=== PATIENT | female | born 1950 | race Caucasian/White ===

== ENCOUNTER 2016-03-05 18:05 | Observation (INO) | payer BC ==
[2016-03-05] MEDS ORDERED: NS 1,000 ML IV ONE (18:55)
[2016-03-05] MEDS ORDERED: HYDROmorphONE/DILAUDID 1 MG/ML SYR IVP ONE ×2 (18:55→22:03)
[2016-03-05] MEDS ORDERED: ONDANSETRON 4 MG/2 ML VIAL IVP ONE ×2 (18:55→22:03)
--- NOTE | 2016-03-05 19:22 | EDPHY ---
H & P Stated Complaint: LLQ pain/nausea x 2 wks;saw PCP today,started on meds;wants another eval Source: Patient Exam Limitations: No limitations - Personal History Current Tetanus Diphtheria and Acellular Pertussis (TDAP): Yes Tetanus Vaccine Date: 2007 - Medical/Surgical History Hx Asthma: No Hx Chronic Respiratory Disease: Yes Hx Diabetes: Yes Hx Cardiac Disease: Yes Hx Renal Disease: No Hx Cirrhosis: No Hx Alcoholism: No Hx HIV/AIDS: No Hx Splenectomy or Spleen Trauma: No Other PMH: left mastectomy, breast cancer, hysterectomy, tonsillectomy, pacemaker, lap band, NIDDM, COPD. diverticulitis - Social History Smoking Status: Never smoked Time Seen by Provider: 03/05/16 18:10 HPI/ROS: CHIEF COMPLAINT: abdominal pain, vomiting HISTORY OF PRESENT ILLNESS: 66-year-old female presents emergency department complaining of left lower quadrant abdominal pain, nausea and vomiting. Patient has a history of diverticulitis, last episode 1 year ago. She reports a 2 week history of mild nausea and mild left lower quadrant tenderness at a 2 to 3/10. This morning after eating breakfast around noon she developed severe left lower quadrant pain with nausea and vomiting, she went to see Dr. Garcia today and was started on Augmentin and Zofran for a presumed diverticulitis, she was feeling better at the doctor's office, about 4 hours ago she became worse again with worsening pain, vomiting and nausea. She reports no diarrhea, no fevers. Patient has a history of a lap band 10 years ago. Pain is constant, no alleviating or worsening factors. Sharp and achy in nature. REVIEW OF SYSTEMS: A comprehensive 10 point review of systems is otherwise negative aside from elements mentioned in the history of present illness. (Leigh Ann Eisenberg) - Physical Exam Exam: Physical Exam Gen: Alert and Oriented, vomiting on my arrival to the room HEENT: PERRL, moist mucous membranes NECK: no meningismus CV: regular rate and regular rhythm PULM: CTAB, no wheezes ABDOMEN: Obese, soft, left lower quadrant tender to palpation, no guarding, no peritoneal signs. BS present BACK:mild left CVA tenderness NEURO: Neurologically grossly intact EXTREMITIES: normal appearing SKIN: no rash or break in skin on exposed skin PSYCH: answers questions appropriately. (Leigh Ann Eisenberg) Constitutional: Initial Vital Signs Temperature (C) 36.4 C 03/05/16 18:20 Heart Rate 71 03/05/16 18:20 Respiratory Rate 18 03/05/16 18:20 Blood Pressure 179/113 H 03/05/16 18:20 O2 Sat (%) 93 03/05/16 18:20 O2 Delivery Mode Room Air O2 (L/minute) 2 Allergies/Adverse Reactions: No Known Allergies Allergy (Verified 03/05/16 18:23) Home Medications: Medication Instructions Recorded Alpha Lipoic Acid 300 mg PO DAILY@06/14/12 Aspirin [Aspirin 81mg (OTC)] 81 mg PO DAILY@06/14/12 EXENATIDE [BYETTA] 10 mcg SQ BID@,06/14/12 Fenofibrate [Tricor 145 mg (RX)] 145 mg PO DAILY@06/14/12 Magnesium 500 mg PO DAILY@06/14/12 Rosuvastatin Calcium [Crestor 40mg 40 mg PO DAILY@06/14/12 (RX)] metFORMIN HCL [Glucophage 500 mg 1,000 mg PO BID@,08/10/12 (RX)] Benazepril/Hydrochlorothiazide 1 each PO DAILY@03/05/16 [Benazepril-Hctz 20-12.5 mg Tab] Chromium Picolinate 500 mcg PO DAILY@03/05/16 Cyanocobalamin [Vitamin B12 (*)] 1,000 mcg PO DAILY@03/05/16 Herbals/Supplements -Info Only 1 ea PO DAILY 03/05/16 Lansoprazole [Prevacid] 15 mg PO DAILY@03/05/16 Metoprolol Tartrate [Lopressor 25 25 mg PO BID@03/05/16 mg (*)] Naproxen Na-Diphenhydramin HCl 1 each PO HS PRN 03/05/16 [Aleve Pm Caplet] Naproxen Sodium [Aleve 220 MG (*)] 220 mg PO DAILY PRN 03/05/16 diphenhydrAMINE [Benadryl 25 MG 25 mg PO HS PRN 03/05/16 (*)] Medical Decision Making - Diagnostics Imaging: CT abdomen pelvis with IV contrast- Impression: 1. 9 x 5 mm left ureteral calculus associated left-sided obstructive uropathy. 2. Postoperative changes of gastric banding. 3. Cholelithiasis 4. Diverticulosis without diverticulitis. 5. See above report for additional findings. A preliminary report was called to Leigh Ann Eisenberg NP at 2120 hours in the Emergency Department. Dictated By: Eliel Baker MD (Leigh Ann Eisenberg) ED Course/Re-evaluation: IV established, CBC and chemistry panel obtained along with a urinalysis, CT abdomen pelvis with IV contrast ordered to evaluate for diverticulitis, kidney stone, other abdominal pathology. Patient is given 1 mg of Dilaudid IV and 4 mg of Zofran. CBC shows an elevated white blood cell count at 15,000 with a left shift, chemistry panel shows a glucose of 254, creatinine of 1.0, urinalysis shows 50- 182 red blood cells, no white blood cells. Patient is afebrile, nontoxic- appearing, urinating without difficulty. CT abdomen pelvis shows a left ureteral calculi in proximal ureter 9 mm x 5 mm with hydronephrosis. Patient continues with pain and vomiting. She will be admitted to the hospital medicine service, Dr. marquez has been consulted with Urology, he will see the patient in the morning. Patient is given 1 g of Rocephin IV and 30 mg of Toradol IV. (Leigh Ann Eisenberg) - Data Points Laboratory Results: Laboratory Results 03/05/16 21:07 03/05/16 19:30 03/05/16 03/05/16 21:07 19:30 WBC 15.01 H 10^3/uL REJ (3.80-9.50) RBC 4.45 10^6/uL TNP (4.18-5.33) Hgb 14.2 g/dL TNP (12.6-16.3) Hct 40.2 % TNP (38.0-47.0) MCV 90.3 fL TNP (81.5-99.8) MCH 31.9 pg TNP (27.9-34.1) MCHC 35.3 g/dL TNP (32.4-36.7) RDW 12.2 % TNP (11.5-15.2) Plt Count 372 10^3/uL TNP (150-400) MPV 9.5 fL TNP (8.7-11.7) Neut % (Auto) 81.5 H % TNP (39.3-74.2) Lymph % (Auto) 10.7 L % TNP (15.0-45.0) [place] % (Auto) 5.1 % TNP (4.5-13.0) Eos % (Auto) 0.3 L % TNP (0.6-7.6) Baso % (Auto) 0.7 % TNP (0.3-1.7) Nucleat RBC Rel Count 0.0 % TNP (0.0-0.2) Absolute Neuts (auto) 12.24 H 10^3/uL TNP (1.70-6.50) Absolute Lymphs (auto) 1.61 10^3/uL TNP (1.00-3.00) Absolute Monos (auto) 0.77 10^3/uL TNP (0.30-0.80) Absolute Eos (auto) 0.04 10^3/uL TNP (0.03-0.40) Absolute Basos (auto) 0.10 10^3/uL TNP (0.02-0.10) Absolute Nucleated RBC 0.00 10^3/uL TNP (0-0.01) Immature Gran % 1.7 H % TNP (0.0-1.1) Immature Gran # 0.25 H 10^3/uL TNP (0.00-0.10) Sodium 143 mEq/L (134-144) Potassium 4.2 mEq/L (3.5-5.2) Chloride 103 mEq/L (97-110) Carbon Dioxide 22 mEq/l (22-31) Anion Gap 18 mEq/L (8-16) BUN 18 mg/dL (7-23) Creatinine 1.0 mg/dL (0.6-1.0) Estimated GFR 55 Glucose 254 H mg/dL (70-100) Calcium 10.2 mg/dL (8.5-10.4) Total Bilirubin 0.8 mg/dL (0.1-1.4) AST 39 IU/L (14-46) ALT 26 IU/L (9-52) Alkaline Phosphatase 62 IU/L (38-126) Total Protein 7.1 g/dL (6.3-8.2) Albumin 4.3 g/dL (3.5-5.0) Urine Color YELLOW Urine Appearance MODERATELY TURBID Urine pH 5.0 (5.0-7.5) Ur Specific [place] 1.028 (1.002-1.030) Urine Protein 2+ H (NEGATIVE) Urine Ketones TRACE H (NEGATIVE) Urine Blood 3+ H (NEGATIVE) Urine Nitrate NEGATIVE (NEGATIVE) Urine Bilirubin NEGATIVE (NEGATIVE) Urine Urobilinogen NEGATIVE EU (0.2-1.0) Ur Leukocyte Esterase NEGATIVE (NEGATIVE) Urine RBC 50-182 H /hpf (0-3) Urine WBC NONE SEEN /hpf (0-3) Ur Epithelial Cells TRACE /lpf (NONE-1+) Calcium Oxalate Crystal PRESENT /hpf (NONE-1+) Urine Bacteria TRACE H /hpf (NONE SEEN) Urine Mucus TRACE /lpf (NONE-1+) Ur Culture Indicated? NOT INDICATED (NI) Urine Glucose 2+ H (NEGATIVE) Medications Given: Discontinued Medications Acetaminophen/Hydrocodone Bitart (Tony 5/325) 1 tab PO EDNOW ONE Stop: 03/05/16 21:27 Last Admin: 03/05/16 22:02 Dose: Not Given Acetaminophen/Hydrocodone Bitart (Tony 5/325mg Prepack#6) 1 btl TAKEHOME EDNOW ONE Stop: 03/05/16 21:28 Last Admin: 03/05/16 22:03 Dose: Not Given Hydromorphone HCl (Dilaudid) 1 mg IVP EDNOW ONE Stop: 03/05/16 18:56 Last Admin: 03/05/16 19:00 Dose: 1 mg Hydromorphone HCl (Dilaudid) 0.5 mg IVP EDNOW ONE Stop: 03/05/16 22:04 Last Admin: 03/05/16 22:35 Dose: 0.5 mg Sodium Chloride (Ns) 1,000 mls @ 0 mls/hr IV ONCE ONE PRN Reason: Wide Open Stop: 03/05/16 18:56 Last Admin: 03/05/16 19:00 Dose: 1,000 mls Ceftriaxone Sodium/Dextrose (Rocephin 1 Gm (Premix)) 50 mls @ 100 mls/hr IV EDNOW ONE PRN Reason: Protocol Stop: 03/05/16 22:10 Last Admin: 03/05/16 22:42 Dose: 50 mls Ketorolac Tromethamine (Toradol) 30 mg IVP EDNOW ONE Stop: 03/05/16 21:27 Last Admin: 03/05/16 22:30 Dose: 30 mg Ondansetron HCl (Zofran) 4 mg IVP EDNOW ONE Stop: 03/05/16 18:56 Last Admin: 03/05/16 19:00 Dose: 4 mg Ondansetron HCl (Zofran) 4 mg IVP EDNOW ONE Stop: 03/05/16 22:04 Last Admin: 03/05/16 22:30 Dose: 4 mg Departure - Departure Disposition: [facility] Inpatient Acute Clinical Impression: Left ureteral calculus Condition: Good
[2016-03-05 19:40] LABS: COLOR YELLOW; LEUKOCYTE ESTERASE,URINE NEGATIVE (NEGATIVE); NITRITE,URINE NEGATIVE (NEGATIVE)
[2016-03-05 19:54] LABS: ANION GAP 18 mEq/L (8-16); CARBON DIOXIDE 22 mEq/l (22-31); CHLORIDE 103 mEq/L (97-110); POTASSIUM 4.2 mEq/L (3.5-5.2); SODIUM 143 mEq/L (134-144)
[2016-03-05 19:55] LABS: ALANINE AMINOTRANSFERASE 26 IU/L (9-52); ALBUMIN 4.3 g/dL (3.5-5.0); ALKALINE PHOSPHATASE 62 IU/L (38-126); ASPARTATE AMINOTRANSFERASE 39 IU/L (14-46); BILIRUBIN,TOTAL 0.8 mg/dL (0.1-1.4); CALCIUM 10.2 mg/dL (8.5-10.4); GLOMERULAR FILTRATION RATE 55; GLUCOSE 254 mg/dL (70-100); TOTAL PROTEIN 7.1 g/dL (6.3-8.2)
[2016-03-05 19:59] LABS: BACTERIA TRACE /hpf (NONE SEEN); MUCUS TRACE /lpf (NONE-1+); RBC,URINE 50-182 /hpf (0-3)
[2016-03-05] MEDS ORDERED: IOPAMIDOL (ISOVUE-300) 50 ML VIAL IV ONE ×2 (20:03)
[2016-03-05 20:05] LABS: WBC,URINE NONE SEEN /hpf (0-3)
[2016-03-05 21:22] LABS: % IMMATURE GRANULYOCYTES 1.7 % (0.0-1.1); ABSOLUTE IMMATURE GRANULOCYTES 0.25 10^3/uL (0.00-0.10); ADD DIFF? NO; ADD MORPH? NO; ADD SCAN? NO; ATYPICAL LYMPHOCYTE FLAG 10 (0-99); FRAGMENT RBC FLAG 0 (0-99); HEMATOCRIT 40.2 % (38.0-47.0); HEMOGLOBIN 14.2 g/dL (12.6-16.3); LEFT SHIFT FLG 10 (0-99); LIPEMIA HEMOLYSIS FLAG 90 (0-99); MEAN CELL HEMOGLOBIN 31.9 pg (27.9-34.1); MEAN CELL HEMOGLOBIN CONCENTR. 35.3 g/dL (32.4-36.7); MEAN CELL VOLUME 90.3 fL (81.5-99.8); MEAN PLATELET VOLUME 9.5 fL (8.7-11.7); PLATELET CLUMPS FLAG 0 (0-99); PLATELET COUNT 372 10^3/uL (150-400); RED BLOOD CELL COUNT 4.45 10^6/uL (4.18-5.33); RED CELL DISTRIBUTION WIDTH 12.2 % (11.5-15.2)
[2016-03-05] MEDS ORDERED: KETOROLAC 30 MG/1 ML SDV IVP ONE (21:26)
[2016-03-05] MEDS ORDERED: TAMSULOSIN HCL 0.4 MG CAP PO ONE (21:27)
--- NOTE | 2016-03-05 21:29 | CT ---
CT Scan of the Abdomen and Pelvis With Contrast Indication: Left flank pain and hematuria in a 66-year-old female with a history of gastric band. Technique: Multidetector CT images of the abdomen and pelvis were obtained following the uneventful i ntravenous administration of 95 mL Isovue-300 contrast. No oral contrast was administered. Comparison is made to the previous examination March 09, 2015. Axial images are obtained at 5 mm intervals an d reformatted at 1.5 mm thickness. The examination is reviewed on the workstation at multiple window/ level settings. Sagittal and coronal reformations are performed. Dose reduction techniques were utilized for this examination. Abdomen: Lung bases: There is minimal basilar atelectasis. No pleural fluid. Cardiac pacer leads are identifie d. Liver: Normal. Postoperative changes of gastric banding are noted and unchanged. Biliary system: There is cholelithiasis. No intra or extrahepatic dilatation. Spleen: Negative for acute abnormality. No change in the appearance of the well-circumscribed low-att enuation area within the spleen consistent with a splenic cyst.. Pancreas: Normal. Adrenals: Normal. Kidneys: There is left hydronephrosis and there is edema in the left perinephric fat. In the proximal left ureter at the L3-L4 level there is a 9 x 5 mm ureteral calculus. The left ureter distal to this point is normal. The right kidney is negative for nephrolithiasis or hydronephrosis. A simple cyst o f the lower pole of the right kidney measures 5.3 cm in diameter and is unchanged. Abdominal Aorta: No aneurysm. Colonic diverticulosis is noted without diverticulitis. No bowel obstruction, ascites, or retroperito ben lymphadenopathy. CT Pelvis Findings: The bladder contour is normal. No ascites is seen. Degenerative changes are noted in the spine. Impression: 1. 9 x 5 mm left ureteral calculus associated left-sided obstructive uropathy. 2. Postoperative changes of gastric banding. 3. Cholelithiasis 4. Diverticulosis without diverticulitis. 5. See above report for additional findings. A preliminary report was called to Leigh Ann Eisenberg NP at 2120 hours in the Emergency Department.
[2016-03-05] MEDS: HYDROCOD/APAP 5/325 PREPACK#6 BTL TAKEHOME ONE ×2 (21:30→22:03)
[2016-03-05] MEDS: HYDROCODONE/APAP 5/325 TAB PO ONE ×2 (21:31→22:02)
[2016-03-05] MEDS ORDERED: PROMETHAZINE HCL 25 MG/ML VIAL IVP PRN (23:09)
[2016-03-05] MEDS ORDERED: oxyCODONE IR 5 MG TAB PO PRN (23:09)
[2016-03-05] MEDS ORDERED: LORazepam 0.5 MG TAB PO PRN (23:09)
[2016-03-05] MEDS ORDERED: ONDANSETRON DISINTEGRATING 4 MG TAB PO PRN (23:09)
[2016-03-05] MEDS ORDERED: ONDANSETRON 4 MG/2 ML VIAL IVP PRN (23:09)
[2016-03-05] MEDS ORDERED: ACETAMINOPHEN 325 MG TAB PO PRN (23:09)
[2016-03-05] MEDS ORDERED: ZOLPIDEM TARTRATE 5 MG TAB PO PRN (23:09)
[2016-03-05] MEDS ORDERED: HYDROmorphONE/DILAUDID 1 MG/ML SYR IVP PRN (23:09)
[2016-03-05] MEDS ORDERED: D50W 25 GM/50 ML SYR IVP PRN (23:09)
[2016-03-05] MEDS ORDERED: NAPROXEN SODIUM 220 MG TAB PO PRN (23:15)
[2016-03-05] MEDS ORDERED: diphenhydrAMINE 25 MG CAP PO PRN (23:15)
[2016-03-05] MEDS ORDERED: NAPROXEN NA DIPHENHYDRAMIN HCL PO PRN (23:15)
[2016-03-05] MEDS ORDERED: NS 1,000 ML IV SCH (23:15)
[2016-03-06] MEDS ORDERED: MAGNESIUM OXIDE 400 MG TAB PO SCH (01:00)
[2016-03-06] MEDS ORDERED: CHROMIUM PICOLINATE 500 MCG PO SCH (01:00)
[2016-03-06] MEDS ORDERED: ALPHA LIPOIC ACID 300 MG PO SCH (01:00)
[2016-03-06] MEDS ORDERED: METOPROLOL TARTRATE 25 MG TAB PO SCH (01:00)
[2016-03-06] MEDS ORDERED: BENAZEPRIL HCL 20 MG TAB PO SCH ×2 (01:00)
[2016-03-06] MEDS ORDERED: HYDROCHLOROTHIAZIDE 12.5 MG CAP PO SCH (01:00)
[2016-03-06] MEDS ORDERED: MAGNESIUM 500 MG PO SCH (01:00)
[2016-03-06] MEDS ORDERED: CYANO/VITAMIN B12 1000 MCG TAB PO SCH (01:00)
[2016-03-06] MEDS ORDERED: Exenatide [Byetta] 10 MCG SQ SCH (02:00)
[2016-03-06 06:07] LABS: % IMMATURE GRANULYOCYTES 1.8 % (0.0-1.1); ABSOLUTE IMMATURE GRANULOCYTES 0.22 10^3/uL (0.00-0.10); ADD DIFF? NO; ADD MORPH? NO; ADD SCAN? NO; ATYPICAL LYMPHOCYTE FLAG 10 (0-99); FRAGMENT RBC FLAG 0 (0-99); HEMATOCRIT 38.8 % (38.0-47.0); HEMOGLOBIN 12.9 g/dL (12.6-16.3); LEFT SHIFT FLG 10 (0-99); LIPEMIA HEMOLYSIS FLAG 80 (0-99); MEAN CELL HEMOGLOBIN 31.4 pg (27.9-34.1); MEAN CELL HEMOGLOBIN CONCENTR. 33.2 g/dL (32.4-36.7); MEAN CELL VOLUME 94.4 fL (81.5-99.8); MEAN PLATELET VOLUME 9.5 fL (8.7-11.7); PLATELET CLUMPS FLAG 0 (0-99); PLATELET COUNT 364 10^3/uL (150-400); RED BLOOD CELL COUNT 4.11 10^6/uL (4.18-5.33); RED CELL DISTRIBUTION WIDTH 12.3 % (11.5-15.2)
--- NOTE | 2016-03-06 06:31 | PDEACUHP ---
History and Physical - Chief Complaint abd pain/n/v - History of Present Illness 66 yo F with PMH that includes sarcoidosis, complete heart block s/p PPM and DM presenting with LLQ abd pain, n/v. She has been somewhat ill for the last 4 weeks per her report, initially with URI symptoms. This improved but then for the last 2 weeks she has had slight nausea and some left lower quadrant pain and left flank pain. She has not been eating very well secondary to the nausea. She denies any issues with change in her urination or blood in her urine. She has not had similar issues in the past. History Information - Allergies/Home Medication List Allergies/Adverse Reactions: No Known Allergies Allergy (Verified 03/05/16 18:23) Home Medications: Alpha Lipoic Acid 300 mg PO DAILY@06/14/12 [Last Taken 12/26/12] Aspirin [Aspirin 81mg (OTC)] 81 mg PO DAILY@06/14/12 [Last Taken 12/26/12] EXENATIDE [BYETTA] 10 mcg SQ BID@,06/14/12 [Last Taken 12/26/12] Fenofibrate [Tricor 145 mg (RX)] 145 mg PO DAILY@06/14/12 [Last Taken ] Magnesium 500 mg PO DAILY@06/14/12 [Last Taken 12/26/12] Rosuvastatin Calcium [Crestor 40mg (RX)] 40 mg PO DAILY@06/14/12 [Last Taken 12/26/12] metFORMIN HCL [Glucophage 500 mg (RX)] 1,000 mg PO BID@08/10/12 [Last Taken 12/26/12] Benazepril/Hydrochlorothiazide [Benazepril-Hctz 20-12.5 mg Tab] 1 each PO DAILY@ 03/05/16 [Last Taken Unknown] Chromium Picolinate 500 mcg PO DAILY@03/05/16 [Last Taken Unknown] Cyanocobalamin [Vitamin B12 (*)] 1,000 mcg PO DAILY@03/05/16 [Last Taken Unknown] Herbals/Supplements -Info Only 1 ea PO DAILY 03/05/16 [Last Taken Unknown] Lansoprazole [Prevacid] 15 mg PO DAILY@03/05/16 [Last Taken Unknown] Metoprolol Tartrate [Lopressor 25 mg (*)] 25 mg PO BID@,03/05/16 [Last Taken Unknown] Naproxen Na-Diphenhydramin HCl [Aleve Pm Caplet] 1 each PO HS PRN 03/05/16 [ Last Taken Unknown] Naproxen Sodium [Aleve 220 MG (*)] 220 mg PO DAILY PRN 03/05/16 [Last Taken Unknown] diphenhydrAMINE [Benadryl 25 MG (*)] 25 mg PO HS PRN 03/05/16 [Last Taken Unknown] I have personally reviewed and updated: family history, medical history, social history, surgical history - Past Medical History atrial fibrillation, coronary artery disease, diabetes type 2 Additional medical history: sarcoidosis. complete heart block. tito. morbid obesity. a flutter - Surgical History Reports: hysterectomy, mastectomy, pacemaker/AICD Additional surgical history: lap band. tonsillectomy - Family History Positive for: non-pertinent - Social History Smoking Status: Never smoked Alcohol Use: Rarely Drug Use: None Review of Systems ROS: 10pt was reviewed & negative except for what was stated in HPI & below Physical Exam Temp Pulse Resp BP Pulse Ox 36.8 C 71 19 122/62 H 93 03/06/16 04:55 03/06/16 04:55 03/06/16 04:55 03/06/16 04:55 03/06/16 04:55 O2 (L/minute) 2 Constitutional: no apparent distress, obese, uncomfortable Eyes: PERRL Ears, Nose, Mouth, Throat: moist mucous membranes Cardiovascular: regular rate and rhythym, no murmur, rub, or gallop Gastrointestinal: normoactive bowel sounds, tenderness Genitourinary: no bladder fullness Skin: warm, normal color Musculoskeletal: full muscle strength, no muscle tenderness Neurologic: AAOx3 Psychiatric: interacting appropriately, not anxious, not encephalopathic Lab Data & Imaging Review 03/06/16 05:28 03/06/16 05:28 WBC 12.51 10^3/uL (3.80-9.50) H 03/06/16 05:28 RBC 4.11 10^6/uL (4.18-5.33) L 03/06/16 05:28 Hgb 12.9 g/dL (12.6-16.3) 03/06/16 05:28 Hct 38.8 % (38.0-47.0) 03/06/16 05:28 MCV 94.4 fL (81.5-99.8) 03/06/16 05:28 MCH 31.4 pg (27.9-34.1) 03/06/16 05:28 MCHC 33.2 g/dL (32.4-36.7) 03/06/16 05:28 RDW 12.3 % (11.5-15.2) 03/06/16 05:28 Plt Count 364 10^3/uL (150-400) 03/06/16 05:28 MPV 9.5 fL (8.7-11.7) 03/06/16 05:28 Neut % (Auto) 73.2 % (39.3-74.2) 03/06/16 05:28 Lymph % (Auto) 15.8 % (15.0-45.0) 03/06/16 05:28 [place] % (Auto) 8.4 % (4.5-13.0) 03/06/16 05:28 Eos % (Auto) 0.1 % (0.6-7.6) L 03/06/16 05:28 Baso % (Auto) 0.7 % (0.3-1.7) 03/06/16 05:28 Nucleat RBC Rel Count 0.0 % (0.0-0.2) 03/06/16 05:28 Absolute Neuts (auto) 9.16 10^3/uL (1.70-6.50) H 03/06/16 05:28 Absolute Lymphs (auto) 1.98 10^3/uL (1.00-3.00) 03/06/16 05:28 Absolute Monos (auto) 1.05 10^3/uL (0.30-0.80) H 03/06/16 05:28 Absolute Eos (auto) 0.01 10^3/uL (0.03-0.40) L 03/06/16 05:28 Absolute Basos (auto) 0.09 10^3/uL (0.02-0.10) 03/06/16 05:28 Absolute Nucleated RBC 0.00 10^3/uL (0-0.01) 03/06/16 05:28 Immature Gran % 1.8 % (0.0-1.1) H 03/06/16 05:28 Immature Gran # 0.22 10^3/uL (0.00-0.10) H 03/06/16 05:28 Sodium 143 mEq/L (134-144) 03/05/16 19:30 Potassium 4.2 mEq/L (3.5-5.2) 03/05/16 19:30 Chloride 103 mEq/L (97-110) 03/05/16 19:30 Carbon Dioxide 22 mEq/l (22-31) 03/05/16 19:30 Anion Gap 18 mEq/L (8-16) 03/05/16 19:30 BUN 18 mg/dL (7-23) 03/05/16 19:30 Creatinine 1.0 mg/dL (0.6-1.0) 03/05/16 19:30 Estimated GFR 55 03/05/16 19:30 Glucose 254 mg/dL (70-100) H 03/05/16 19:30 POC Glucose 240 mg/dL (70-100) H 03/05/16 23:33 Calcium 10.2 mg/dL (8.5-10.4) 03/05/16 19:30 Total Bilirubin 0.8 mg/dL (0.1-1.4) 03/05/16 19:30 AST 39 IU/L (14-46) 03/05/16 19:30 ALT 26 IU/L (9-52) 03/05/16 19:30 Alkaline Phosphatase 62 IU/L (38-126) 03/05/16 19:30 Total Protein 7.1 g/dL (6.3-8.2) 03/05/16 19:30 Albumin 4.3 g/dL (3.5-5.0) 03/05/16 19:30 Urine Color YELLOW 03/05/16 19:30 Urine Appearance MODERATELY TURBID 03/05/16 19:30 Urine pH 5.0 (5.0-7.5) 03/05/16 19:30 Ur Specific [place] 1.028 (1.002-1.030) 03/05/16 19:30 Urine Protein 2+ (NEGATIVE) H 03/05/16 19:30 Urine Ketones TRACE (NEGATIVE) H 03/05/16 19:30 Urine Blood 3+ (NEGATIVE) H 03/05/16 19:30 Urine Nitrate NEGATIVE (NEGATIVE) 03/05/16 19:30 Urine Bilirubin NEGATIVE (NEGATIVE) 03/05/16 19:30 Urine Urobilinogen NEGATIVE EU (0.2-1.0) 03/05/16 19:30 Ur Leukocyte Esterase NEGATIVE (NEGATIVE) 03/05/16 19:30 Urine RBC 50-182 /hpf (0-3) H 03/05/16 19:30 Urine WBC NONE SEEN /hpf (0-3) 03/05/16 19:30 Ur Epithelial Cells TRACE /lpf (NONE-1+) 03/05/16 19:30 Calcium Oxalate Crystal PRESENT /hpf (NONE-1+) 03/05/16 19:30 Urine Bacteria TRACE /hpf (NONE SEEN) H 03/05/16 19:30 Urine Mucus TRACE /lpf (NONE-1+) 03/05/16 19:30 Ur Culture Indicated? NOT INDICATED (NI) 03/05/16 19:30 Urine Glucose 2+ (NEGATIVE) H 03/05/16 19:30 Visualized and Interpreted imaging results: Yes Interpretation: abd Ct with 9 x 5 mm Assessment & Plan Assessment: 66 yo F with hx of sarcoidosis and obesity presenting with uretero- nephrolithiasis # ureterolithiasis: with fairly large left sided stone in ureter, admitted for hydration and urology consult. Continue IVF, flomax. # obstructive uropathy: in setting of above, following creatinine, urology consulted # dm: holding metformin given need for procedure, will start ssi # hx of complete heart block: PPM in place # hx of morbid obesity: s/p lap band # tito: on cpap, will continue # chronic medical issues: sarcoidosis, CAD, a flutter # Dispo: observation status patient new to my care. old records reviewed summarized as above
[2016-03-06 06:35] LABS: ANION GAP 16 mEq/L (8-16); CALCIUM 9.5 mg/dL (8.5-10.4); CARBON DIOXIDE 22 mEq/l (22-31); CHLORIDE 109 mEq/L (97-110); CREATININE 1.2 mg/dL (0.6-1.0); GLOMERULAR FILTRATION RATE 45; GLUCOSE 169 mg/dL (70-100); POTASSIUM 4.6 mEq/L (3.5-5.2); SODIUM 147 mEq/L (134-144)
--- NOTE | 2016-03-06 08:02 | PDCONSULT ---
[facility] [place] Note: HPI: Ms Coles is a 66 yo female who presented last night with acute onset of left flank pain. Workup in the ER was significant for an obstructing 9x5 mm proximal left ureteral stone. Due to poor pain control, she was admitted for hydration and pain control. She has no prior hx of stones and has had no recent problems. She is currently asymptomatic. PMH: diabetes, s/p lap banding Meds, Allergies, labs, CT were reviewed personally. PE: Pt is alert and in NAD. Lungs clear Heart RRR Abdomen is soft and nontender Ext without edema Assess: Obstructing left upper ureteral stone without evidence of infection and currently with good pain control. Recommendations: I reviewed the findings from the CT with the patient. I discussed management options for large proximal stones, risks, stone-free rates. I feel that she would best served with ureteroscopy, laser lithotripsy, stent placement. This procedure could be performed as a scheduled procedure on Thursday; the option of placing an urgent stent and setting up definitive surgery was also discussed. The pt prefers to try to go home today and return for outpatient surgery tomorrow if possible. I will let her eat and if she can sustain reasonable pain control with oral medications, let her go home. I will schedule a specific time for her surgery for tomorrow and pass that information to the patient.
[2016-03-06] MEDS ORDERED: TAMSULOSIN HCL 0.4 MG CAP PO SCH (09:00)
[2016-03-06 09:14] VITALS: BP 130/72; PULSE 62; RESP 16; TEMP 98.1; O2SAT 95
[2016-03-06] MEDS: INSULIN LISPRO 100 UNIT/ML SC SCH ×2 (09:36→12:09)
--- NOTE | 2016-03-06 11:00 | PDDCSUM ---
Discharge Summary Discharge Summary: DISCHARGE SUMMARY FOLLOW-UP ITEMS: 1. Stone analysis following cystoscopy. 2. Recommend repeat creatinine BUN and lytes following cystoscopy DATE OF ADMISSION: 03/05/2016 DATE OF DISCHARGE: 03/06/2016 DISCHARGE DIAGNOSES: 1. Acute obstructive uropathy 2. Acute kidney injury 3. Acute hydronephrosis 4. Acute nephrolithiasis 5. DM2 w/ hyperglycemia CONSULTATIONS: Urology by Dr. Hernández PROCEDURES / IMAGING: CT of the abdomen demonstrating left-sided hydronephrosis with a 9 mm x 5 mm stone, cholelithiasis, diverticulosis CHIEF COMPLAINT: Acute abdominal pain SUBJECTIVE: Patient reports abdominal pain has improved, urinating well PHYSICAL EXAM ON DISCHARGE: Systolic blood pressure 120-140, heart rate in the 70s, afebrile overnight, satting well on room air, bowel sounds present, abdomen is soft nontender nondistended LABS ON DISCHARGE: Creatinine 1.2, white blood cell count 45688, blood sugar 170, potassium 4.6 HOSPITAL COURSE BY PROBLEM: 1. Acute obstructive uropathy. Evidence by hydronephrosis plus acute kidney injury plus obstructing kidney stone, causing acute abdominal pain. Patient's abdominal pain responded to pain medications and antiemetics. The patient feels comfortable at time of discharge and she will be discharged home with as needed oxycodone immediate release as well as as-needed Zofran. She will undergo urgent cystoscopy on 03/07/2016. 2. Acute kidney injury. Evidenced by serum creatinine level 1.2, secondary to middle urinary tract obstruction at the site of her stone. I recommended that the patient avoid nonsteroidal anti-inflammatory medications, temporarily discontinue her NINO inhibitor and diuretic, and temporarily discontinue her metformin. The patient understands medication recommendations, and she will be advise when to restart these medications after her cystoscopy. 3. Acute hydronephrosis. Left-sided, present on CT, secondary to stone obstruction. The stone will be removed and a stent will be placed by Dr. Hernández tomorrow via cystoscopy. 4. Acute nephrolithiasis. 9 mm x 5 mm stone causing obstruction outlined above , stone analysis will be performed once the stone has been removed tomorrow. She will receive further recommendations for stone prevention thereafter. 5. Diabetes mellitus type 2 with hyperglycemia. Acute increased secondary to stress hyperglycemia, patient is safe to continue her [place] periprocedurally but she should hold her metformin until after her procedure given her mild acute kidney injury. DISCHARGE MEDICATIONS: Please see official discharge medication reconciliation sheet in chart , recommend holding metformin, nonsteroidal anti-inflammatory medications, benazepril HCTZ, patient has been initiated on as needed oxycodone and Zofran DISCHARGE INSTRUCTIONS: Please follow up for cystoscopy tomorrow as planned
[2016-03-06] MEDS ORDERED: FENOFIBRATE 145 MG TAB PO SCH (13:00)
[2016-03-06] MEDS ORDERED: PANTOPRAZOLE SODIUM 40 MG TAB PO SCH (13:00)
[2016-03-06] MEDS ORDERED: ROSUVASTATIN CALCIUM 40 MG TAB PO SCH (13:00)
[2016-03-06] MEDS ORDERED: NON-FORMULARY NEW DRUG (Lansoprazole [Prevacid] 15 MG) PO SCH (13:00)
== END 2016-03-06 15:30 | disposition home or self-care (01) ==
LOC: F1N 23:29
PROVIDERS: ADMIT Student in an Organized Health Care Education/Training Program; ATTEND Internal Medicine
DX: N13.2 Hydronephrosis with renal and ureteral calculous obstruction (principal); N13.9 Obstructive and reflux uropathy, unspecified; N17.9 Acute kidney failure, unspecified; E11.65 Type 2 diabetes mellitus with hyperglycemia; Z87.19 Personal history of other diseases of the digestive system; J44.9 Chronic obstructive pulmonary disease, unspecified; K80.20 Calculus of gallbladder without cholecystitis without obstruction; I48.91 Unspecified atrial fibrillation; I25.10 Atherosclerotic heart disease of native coronary artery without angina pectoris; G47.33 Obstructive sleep apnea (adult) (pediatric); E66.01 Morbid (severe) obesity due to excess calories; Z68.37 Body mass index [BMI] 37.0-37.9, adult; Z87.09 Personal history of other diseases of the respiratory system; Z85.3 Personal history of malignant neoplasm of breast; Z95.0 Presence of cardiac pacemaker; Z98.84 Bariatric surgery status; Z90.12 Acquired absence of left breast and nipple
CPT/HCPCS: 74177; 96361; 96365; 96375; 96376; 99285; G0378; J0696; J1170; J1885; J2405; Q9967

== ENCOUNTER 2016-03-07 11:43 | Day surgery (SDC) | payer BC ==
[~2016-03-07 11:43] MED LIST: IOPAMIDOL (ISOVUE-370) 150 ML BTL IV ONE; IOPAMIDOL (ISOVUE-M 300) 15 ML VIAL IV ONE
[2016-03-07] MEDS ORDERED: CEFAZOLIN 2 GM/DEXTROSE/100 ML BAG IV ONE (12:49)
[2016-03-07] MEDS ORDERED: ceFAZolin 2 GM/DEXTROSE 100 ML IV ONE (13:00)
[2016-03-07] MEDS ORDERED: MIDAZOLAM 2 MG/2 ML VIAL ONE (13:16)
[2016-03-07] MEDS ORDERED: SUCCINYLCHOLINE CHLORIDE*ANESTHESIA ONLY*200 MG/10 ML SYR IVP ONE (13:19)
[2016-03-07] MEDS ORDERED: ROCURONIUM 50 MG/5 ML VIAL ONE (13:19)
[2016-03-07] MEDS ORDERED: LIDOCAINE 2% 5 ML SDV ONE (13:20)
[2016-03-07] MEDS ORDERED: DEXAMETHASONE 4 MG/ML VIAL ONE (13:20)
[2016-03-07] MEDS ORDERED: PROPOFOL 200 MG/20 ML VIAL ONE (13:21)
[2016-03-07] MEDS ORDERED: fentaNYL 100 MCG/2 ML INJ ONE ×2 (13:21→14:38)
[2016-03-07] MEDS ORDERED: SUGAMMADEX SODIUM 200 MG/2 ML VIAL IVP ONE ×2 (13:44)
--- NOTE | 2016-03-07 14:44 | GOP ---
[f rep st] OPERATIVE REPORT DATE OF OPERATION: 03/07/2016 SURGEON: Jarek Hernández MD PREOPERATIVE DIAGNOSIS: Left ureteral calculus. POSTOPERATIVE DIAGNOSIS: Left ureteral calculus. PROCEDURE PERFORMED: Left ureteroscopy with holmium laser lithotripsy, basket extraction of stones, placement of indwelling ureteral stent. FINDINGS: SPECIMENS: Stone fragments for analysis. ESTIMATED BLOOD LOSS: None. INDICATIONS: The patient is a 66-year-old female who was admitted yesterday after suffering left fla nk pain. Was found to have a 9 x 7 mm proximal left ureteral stone. She was subsequently discharged , but after discussing options and due to the stone size, elected to come in today for stone extracti on. DESCRIPTION OF PROCEDURE: After informed consent and with general endotracheal anesthesia, the patie nt was placed in the lithotomy position with her genitalia sterilely prepped and draped. Cystoscopy was carried out, and a Sensor guidewire passed into the left renal pelvis under fluoroscopic control. A flexible ureteroscopy access sheath was then positioned in the proximal ureter. The flexible ure teroscope was inserted. The stone was identified, and was pushed back into the kidney. A 200 micron holmium laser fiber was then used at 6.4 james of energy. The stone fragments were then removed usi ng a Zero Tip nitinol basket. The remaining collecting system was examined, and the upper tracts opa cified. The scope and sheath were removed under vision. A 6-[place] multi-length ureteral stent was positioned, and a withdrawal string was left in place. The patient was awakened and transferred to the recovery room in stable condition. There were no int raoperative complications. /[id number]/MODL
[2016-03-07] MEDS ORDERED: ONDANSETRON 4 MG/2 ML VIAL ONE (14:58)
--- NOTE | 2016-03-07 19:28 | DX ---
Fluoroscopy Greater Than One Hour Clinical indication: Stent placement. Fluoroscopy time 0.1 seconds. Dose 0.5 mGy. Findings: Single spot fluoroscopic image was obtained. This shows placement of a left ureteral stent in good position. A gastric band is noted. Impression: Fluoroscopy provided for left ureteral stent placement.
[2016-03-11 18:24] LABS: NIDUS NOT OBSERVED; SOURCE OF STONE LEFT URETER
== END 2016-03-07 16:30 | disposition home or self-care (01) ==
LOC: FSGY 11:43
PROVIDERS: ATTEND Urology
PROC: 0T778DZ Dilation of Left Ureter with Intraluminal Device, Via Natural or Artificial Opening Endoscopic (ICD-10-PCS; principal; 2016-03-07 13:00)
PROC: 0TF48ZZ Fragmentation in Left Kidney Pelvis, Via Natural or Artificial Opening Endoscopic (ICD-10-PCS; 2016-03-07 13:00)
PROC: 0TC48ZZ Extirpation of Matter from Left Kidney Pelvis, Via Natural or Artificial Opening Endoscopic (ICD-10-PCS; 2016-03-07 13:00)
DX: N20.1 Calculus of ureter (principal); G47.33 Obstructive sleep apnea (adult) (pediatric); J45.909 Unspecified asthma, uncomplicated; E11.9 Type 2 diabetes mellitus without complications; D86.9 Sarcoidosis, unspecified; Z95.0 Presence of cardiac pacemaker; Z98.84 Bariatric surgery status
CPT/HCPCS: 52352; 52356; 76001; C1894; 82365-90; C2625; J0330; J0690; J1100; J2250; J2405; J2704; J3010; Q9967

== ENCOUNTER 2016-03-17 18:55 | Inpatient (IN) | payer OTHER, BC ==
--- NOTE | 2016-03-17 19:28 | EDPHY ---
H & P Time Seen by Provider: 03/17/16 19:28 HPI/ROS: CHIEF COMPLAINT: I am disoriented HISTORY OF PRESENT ILLNESS: This 66-year-old woman is a diabetic who presents with her friend and brought her in because the patient was not acting normally today. She was supposed to meet with her friend at 5:30 p.m. when she did not show up her friend went to her house and then brought her here because she is not acting right. The patient says she can't talk normally. She has trouble thinking of which she wants to say. She does not know when it started and her friend only knows that they went for a walk yesterday and she left her at 1:30 p.m. and she was normal. That is the last known normal time. Patient's symptoms are not associated with headache or weakness or numbness in extremities or vertigo. Symptoms are moderate in nature. Not better worse with anything. REVIEW OF SYSTEMS: Eye: no change in vision ENT: no sore throat Cardiac: no chest pain or syncope Pulmonary: no cough or SOB Abdomen: no vomiting, diarrhea, abdominal pain Musculoskeletal: no back pain Skin: no rash Neuro: no headache Constitutional: no fever : no urinary symptoms; recent admission for ureteral stone and extraction with stent placement. A comprehensive 10 point review of systems is otherwise negative aside from elements mentioned in the history of present illness. PAST MEDICAL HISTORY: Includes breast cancer, hysterectomy and tonsillectomy, pacemaker, diabetes, COPD. Recent admission for kidney stone ureteral stent. Discharge summary dated 03/06/2016 personally reviewed by myself. Primary care doctor is Larisa Doherty. Social history: Occasional alcohol but none today, nonsmoker. No drugs. General Appearance: Alert and hesitant speech, cooperative. Eyes: No scleral icterus. ENT, Mouth: Normal mucous membranes. Respiratory: Normal respiratory effort, breath sounds equal, lungs are clear to auscultation. Cardiovascular: Regular rate and rhythm. Gastrointestinal: Abdomen is soft and non tender. Neurological: Alert and oriented x3. Patient has slow speech consistent with some word-finding difficulties. Extraocular motion is intact. Face symmetric, normal movement and sensation in all extremities. Skin: Warm and dry, no rashes. Musculoskeletal: No peripheral edema and no joint swelling. Neck supple with normal range of motion. No meningeal signs. Psychiatric: Not agitated. Emergency Department course/MDM: Concern exists for stroke given word-finding difficulties but does not qualify for stroke alert as last known normal was 1:30 p.m. yesterday on March 16. Plan for CT, CT angiography, i-STAT glucose. 2154: Results discussed, friends and patient's air speech is now better, admit for TIA. 2224: [employer] contacted by the desk EMT for pacemaker interrogation. Patient's hematuria and elevated white blood cell count are noted, this is probably related to her recent ureteral stone extraction. Chest x-ray is negative. I do not think this represents an acute bacterial illness, or acute infectious encephalitis. Smoking Status: Never smoked Constitutional: Initial Vital Signs Temperature (C) 37.3 C 03/17/16 19:03 Heart Rate 125 H 03/17/16 19:03 Respiratory Rate 20 03/17/16 19:03 Blood Pressure 159/94 H 03/17/16 19:03 O2 Sat (%) 91 L 03/17/16 19:03 O2 Delivery Mode Room Air Allergies/Adverse Reactions: No Known Allergies Allergy (Verified 03/05/16 18:23) Home Medications: Medication Instructions Recorded Alpha Lipoic Acid 300 mg PO DAILY@06/14/12 EXENATIDE [BYETTA] 10 mcg SQ BID@06/14/12 Fenofibrate [Tricor 145 mg (*)] 145 mg PO DAILY@06/14/12 Magnesium 500 mg PO DAILY@06/14/12 Rosuvastatin Calcium [Crestor 40mg 40 mg PO DAILY@06/14/12 (*)] Chromium Picolinate 500 mcg PO DAILY@03/05/16 Cyanocobalamin [Vitamin B12 (*)] 1,000 mcg PO DAILY@03/05/16 Herbals/Supplements -Info Only 1 ea PO DAILY 03/05/16 Lansoprazole [Prevacid] 15 mg PO DAILY@03/05/16 Metoprolol Tartrate [Lopressor 25 25 mg PO BID@03/05/16 mg (*)] diphenhydrAMINE [Benadryl 25 MG 25 mg PO HS PRN 03/05/16 (*)] Acetaminophen [Tylenol 325mg (*)] 650 mg PO Q4HRS PRN #0 tab 03/06/16 Ondansetron Odt [Zofran Odt 4 mg 4 mg PO Q4HRS PRN #0 tab 03/06/16 (*)] Sennosides/Docusate Sodium 1 tab PO BID PRN #40 tab 03/06/16 [Senokot-S] Tamsulosin HCl [Flomax 0.4 MG (*)] 0.4 mg PO DAILY #14 cap 03/06/16 oxyCODONE IR [Oxycodone Ir (*)] 2.5 - 10 mg PO Q3HRS PRN #20 tab 03/06/16 Albuterol Hfa Anes Only [Proair 2 puffs IH QID PRN 03/17/16 Hfa Icu (*)] Benazepril/Hydrochlorothiazide 1 each PO DAILY 03/17/16 [Benazepril-Hctz 20-12.5 mg Tab] metFORMIN HCL [Glucophage 500 mg 1,000 mg PO BIDMEAL 03/17/16 (*)] Medical Decision Making - Diagnostics EKG Interpretation: 12-lead EKG interpreted by me; official reading is in trace master. My interpretation is ventricular paced rhythm at 122. Imaging: CT head and CT angiography reported by Dr. Willie Yung negative for acute intracranial abnormality or large vessel obstruction. Differential Diagnosis: Differential considered including but not limited to intracranial mass, intracranial bleed, ischemic stroke, seizure. Consult/Admit Bed Type: [place] [id number] - Data Points Laboratory Results: Laboratory Results 03/17/16 19:20 03/17/16 19:20 03/17/16 03/17/16 03/17/16 20:15 19:35 19:20 WBC 19.57 H 10^3/uL (3.80-9.50) RBC 4.34 10^6/uL (4.18-5.33) Hgb 13.6 g/dL (12.6-16.3) POC Hgb 13.6 gm/dL (12.3-15.9) Hct 39.2 % (38.0-47.0) POC Hct 40 % (35.5-47.5) MCV 90.3 fL (81.5-99.8) MCH 31.3 pg (27.9-34.1) MCHC 34.7 g/dL (32.4-36.7) RDW 12.5 % (11.5-15.2) Plt Count 352 10^3/uL (150-400) MPV 9.7 fL (8.7-11.7) Neut % (Auto) 74.7 H % (39.3-74.2) Lymph % (Auto) 12.1 L % (15.0-45.0) [place] % (Auto) 11.5 % (4.5-13.0) Eos % (Auto) 0.3 L % (0.6-7.6) Baso % (Auto) 0.6 % (0.3-1.7) Nucleat RBC Rel Count 0.0 % (0.0-0.2) Absolute Neuts (auto) 14.63 H 10^3/uL (1.70-6.50) Absolute Lymphs (auto) 2.36 10^3/uL (1.00-3.00) Absolute Monos (auto) 2.26 H 10^3/uL (0.30-0.80) Absolute Eos (auto) 0.06 10^3/uL (0.03-0.40) Absolute Basos (auto) 0.11 H 10^3/uL (0.02-0.10) Absolute Nucleated RBC 0.00 10^3/uL (0-0.01) Immature Gran % 0.8 % (0.0-1.1) Immature Gran # 0.15 H 10^3/uL (0.00-0.10) PT 13.7 SEC (12.0-15.0) INR 1.06 (0.83-1.16) POC Sodium 139 mEq/L (134-144) Sodium 135 mEq/L (134-144) POC Potassium 3.1 L mEq/L (3.3-5.0) Potassium 3.9 mEq/L (3.5-5.2) POC Chloride 100 mEq/L (96-108) Chloride 100 mEq/L (97-110) Carbon Dioxide 20 L mEq/l (22-31) Anion Gap 15 mEq/L (8-16) POC BUN 11 mg/dL (7-23) BUN 11 mg/dL (7-23) Creatinine 0.8 mg/dL (0.6-1.0) POC Creatinine 0.8 mg/dL (0.6-1.2) Estimated GFR > 60 Glucose 192 H mg/dL (70-100) POC Glucose 198 H mg/dL (70-100) Calcium 9.6 mg/dL (8.5-10.4) Troponin I 0.012 ng/mL (0-0.034) Urine Color YELLOW Urine Appearance HAZY Urine pH 6.0 (5.0-7.5) Ur Specific [place] 1.016 (1.002-1.030) Urine Protein 1+ H (NEGATIVE) Urine Ketones NEGATIVE (NEGATIVE) Urine Blood 2+ H (NEGATIVE) Urine Nitrate NEGATIVE (NEGATIVE) Urine Bilirubin NEGATIVE (NEGATIVE) Urine Urobilinogen NEGATIVE EU (0.2-1.0) Ur Leukocyte Esterase 2+ H (NEGATIVE) Urine RBC 50-182 H /hpf (0-3) Urine WBC 10-15 H /hpf (0-3) Ur Epithelial Cells TRACE /lpf (NONE-1+) Urine Mucus TRACE /lpf (NONE-1+) Ur Culture Indicated? INDICATED H (NI) Urine Glucose NEGATIVE (NEGATIVE) Point of Care Test Results: 03/17/16 19:35 POC Sodium 139 POC Potassium 3.1 L POC Chloride 100 POC BUN 11 POC Creatinine 0.8 POC Glucose 198 H Departure - Departure Disposition: [facility] Inpatient Acute Clinical Impression: Transient cerebral ischemia Qualifiers: Qualifier Code: (G45.9) Transient cerebral ischemic attack, unspecified Condition: Good
[2016-03-17] MEDS ORDERED: IOPAMIDOL (ISOVUE 370) 100 ML BTL IV ONE (19:46)
[2016-03-17 19:49] LABS: % IMMATURE GRANULYOCYTES 0.8 % (0.0-1.1); ABSOLUTE IMMATURE GRANULOCYTES 0.15 10^3/uL (0.00-0.10); ADD DIFF? NO; ADD MORPH? NO; ADD SCAN? NO; ATYPICAL LYMPHOCYTE FLAG 10 (0-99); FRAGMENT RBC FLAG 0 (0-99); HEMATOCRIT 39.2 % (38.0-47.0); HEMOGLOBIN 13.6 g/dL (12.6-16.3); LEFT SHIFT FLG 10 (0-99); LIPEMIA HEMOLYSIS FLAG 90 (0-99); MEAN CELL HEMOGLOBIN 31.3 pg (27.9-34.1); MEAN CELL HEMOGLOBIN CONCENTR. 34.7 g/dL (32.4-36.7); MEAN CELL VOLUME 90.3 fL (81.5-99.8); MEAN PLATELET VOLUME 9.7 fL (8.7-11.7); PLATELET CLUMPS FLAG 10 (0-99); PLATELET COUNT 352 10^3/uL (150-400); RED BLOOD CELL COUNT 4.34 10^6/uL (4.18-5.33); RED CELL DISTRIBUTION WIDTH 12.5 % (11.5-15.2)
--- NOTE | 2016-03-17 19:50 | CPEKG ---
Heart Rate: 122 RR Interval: 492 P-R Interval: 48 QRSD Interval: 174 QT Interval: 436 QTC Interval: 622 P [place]: 0 QRS [place]: 266 T Wave [place]: 111 EKG Severity - ABNORMAL ECG - EKG Impression: VENTRICULAR-PACED RHYTHM Electronically Signed By: Aung Armas 17-Mar-2016 20:20:58
[2016-03-17 19:51] LABS: ANION GAP 15 mEq/L (8-16); CALCIUM 9.6 mg/dL (8.5-10.4); CARBON DIOXIDE 20 mEq/l (22-31); CHLORIDE 100 mEq/L (97-110); CREATININE 0.8 mg/dL (0.6-1.0); GLOMERULAR FILTRATION RATE > 60; GLUCOSE 192 mg/dL (70-100); POTASSIUM 3.9 mEq/L (3.5-5.2); SODIUM 135 mEq/L (134-144)
[2016-03-17 19:55] LABS: INR 1.06 (0.83-1.16); PROTIME(PATIENT) 13.7 SEC (12.0-15.0)
[2016-03-17 20:03] LABS: TROPONIN I 0.012 ng/mL (0-0.034)
[2016-03-17 20:35] LABS: COLOR YELLOW; LEUKOCYTE ESTERASE,URINE 2+ (NEGATIVE); NITRITE,URINE NEGATIVE (NEGATIVE)
[2016-03-17 20:47] LABS: MUCUS TRACE /lpf (NONE-1+); RBC,URINE 50-182 /hpf (0-3)
--- NOTE | 2016-03-17 21:32 | CT ---
CT Head, Without Contrast HISTORY: Word finding difficulty. Technique: Standard noncontrast head CT protocol utilizing axial images acquired through the calvari um. Images were reconstructed down to 1.25-mm slice thickness, as well. Radiation dose technique wa s utilized. FINDINGS: No evidence for an intracranial mass, hemorrhage, or acute infarct. The ventricles, sulci , and cisterns are within normal limits for the patient's age. No evidence for an extraaxial fluid c ollection. No evidence for a skull fracture. Probable mucus retention cyst is seen in the frontal s inuses. FINDINGS: No evidence for acute intracranial abnormality. Mild chronic sinus-related change. Results discussed with Dr. Aung Armas on March 17, 2016 at 2125 hours.
--- NOTE | 2016-03-17 21:55 | CT ---
CT Angiogram Neck, With IV Contrast HISTORY: Word finding difficulty. TECHNIQUE: Thin cut axial imaging was obtained of the neck postintravenous contrast. IV contrast do se 90 mL Isovue-370 contrast. Multiplanar and 3D evaluation was performed at the workstation. Radia tion dose reduction technique was utilized. FINDINGS: There is a bovine arch configuration. No significant stenosis is seen in either common ca rotid artery. There is mild atherosclerotic plaque formation, with no significant stenosis, at both carotid bulbs. Both internal carotid arteries are tortuous, without significant stenosis or dissecti on. Both vertebral arteries are patent, without evidence for stenosis or dissection. Multilevel deg enerative change is seen in the cervical spine. IMPRESSION: Mild atherosclerotic change at both carotid bulbs causing no significant stenosis. Measurement of stenosis is calculated using criteria from the [place] Symptomatic Carotid Enda rterectomy Trial (NASCET). CT Head Angiogram, With IV Contrast HISTORY: Word finding difficulty. TECHNIQUE: Thin cut axial imaging was obtained of the head postintravenous contrast, with 90 mL Isov ue-370 contrast. Multiplanar and 3D evaluation was performed at the workstation. Radiation dose red uction technique was utilized. FINDINGS: No evidence for significant stenosis or a filling defect to indicate thrombus. There is a hypoplastic A1 segment of the right anterior cerebral artery. There is a hypoplastic or absent P1 s egment of the right posterior cerebral artery. The right posterior cerebral artery is seen communica ting to a right posterior communicating artery. No evidence for an aneurysm or arteriovenous malform ation. No evidence for venous sinus thrombosis. IMPRESSION: No significant stenosis is visualized or evidence for acute thrombus. Variant anatomy o f the pala of [place], as above. Results called to Dr. Aung Armas on March 17, 2016 at 2125 hours.
--- NOTE | 2016-03-17 22:00 | DX ---
Chest, PA and Lateral March 17, 2016 HISTORY: Altered mental status. Disoriented. Elevated white count. COMPARISON: December 2012. FINDINGS: Cardiac pacer and pacing leads are stable. The heart size is within normal limits. The p ulmonary vascularity appears normal. Mild peribronchial wall thickening is seen. Emphysematous conf iguration to the chest. No evidence for acute airspace consolidation or pleural effusion. Degenerat bella change is seen in the thoracic spine. Surgical clips are seen at the left axilla. IMPRESSION: Question mild bronchitis. No other findings for acute cardiopulmonary abnormality.
[2016-03-17] MEDS ORDERED: ONDANSETRON DISINTEGRATING 4 MG TAB PO PRN (23:03)
[2016-03-17] MEDS ORDERED: IBUPROFEN 200 MG TAB PO PRN (23:03)
[2016-03-17] MEDS ORDERED: ONDANSETRON 4 MG/2 ML VIAL IVP PRN (23:03)
[2016-03-17] MEDS ORDERED: SENNOSIDES/DOCUSATE SODIUM TAB PO PRN (23:06)
[2016-03-17] MEDS ORDERED: ALBUTEROL 60 PUFFS/8 GM MDI IH PRN (23:06)
[2016-03-17] MEDS ORDERED: cefTRIAXone 1 GM in D5W 50 ML IV SCH (23:30)
[2016-03-18] MEDS ORDERED: MAGNESIUM PO SCH (01:00)
--- NOTE | 2016-03-18 01:07 | PDGENHP ---
History and Physical - Chief Complaint Acute aphasia - History of Present Illness PCP: Dr. Garcia Primary urologist: Dr. Hernández Primary electrician underground: Dr. Rooney HPI: 66-year-old female presenting with acute aphasia characterized as difficulty speaking and getting words out with associated disorientation and poor short-term memory. Onset of symptoms was after 7:00 p.m. on 03/17/2016, as this was the last time the patient was seen at her baseline. Patient spoke with a friend on the phone at 12:00 p.m. on 03/18/2016 and that friend reported that the patient was having speech difficulties. The duration apparently persisted, and the patient was seen by another friend on the evening of 2016 and this friend brought the patient to the hospital for the aforementioned symptoms. Patient has very poor recollection of the above mentioned of events. She reports that her symptoms were somewhat alleviated by being brought to the hospital and being reoriented by her friend. She does note that the symptoms are somewhat persistent at this time. In her recent past, the patient had a kidney stone removed via lithotripsy and then ureteral stent was placed, she received oral antibiotics, the stent was removed approximately 4 days ago. Antibiotics were also discontinued at that time. In the interim, she has experienced some very mild dysuria as well as nausea. History Information - Allergies/Home Medication List Allergies/Adverse Reactions: No Known Allergies Allergy (Verified 03/05/16 18:23) Home Medications: Alpha Lipoic Acid 300 mg PO DAILY@06/14/12 [Last Taken 03/17/16] EXENATIDE [BYETTA] 10 mcg SQ BID@06/14/12 [Last Taken 03/17/16] Fenofibrate [Tricor 145 mg (*)] 145 mg PO DAILY@06/14/12 [Last Taken 03/17/16 ] Magnesium 500 mg PO DAILY@06/14/12 [Last Taken 03/17/16] Rosuvastatin Calcium [Crestor 40mg (*)] 40 mg PO DAILY@06/14/12 [Last Taken 03/17/16] Chromium Picolinate 500 mcg PO DAILY@03/05/16 [Last Taken 03/17/16] Cyanocobalamin [Vitamin B12 (*)] 1,000 mcg PO DAILY@03/05/16 [Last Taken ] Herbals/Supplements -Info Only 1 ea PO DAILY 03/05/16 [Last Taken 03/17/16] Lansoprazole [Prevacid] 15 mg PO DAILY@03/05/16 [Last Taken 03/17/16] Metoprolol Tartrate [Lopressor 25 mg (*)] 25 mg PO BID@03/05/16 [Last Taken 03/17/16] diphenhydrAMINE [Benadryl 25 MG (*)] 25 mg PO HS PRN 03/05/16 [Last Taken ] Albuterol Hfa Anes Only [Proair Hfa Icu (*)] 2 puffs IH QID PRN 03/17/16 [Last Taken 03/16/16] Benazepril/Hydrochlorothiazide [Benazepril-Hctz 20-12.5 mg Tab] 1 each PO DAILY 03/17/16 [Last Taken 03/17/16] metFORMIN HCL [Glucophage 500 mg (*)] 1,000 mg PO BIDMEAL 03/17/16 [Last Taken 03/17/16] I have personally reviewed and updated: family history, medical history, social history, surgical history - Past Medical History atrial fibrillation, coronary artery disease, diabetes type 2 Additional medical history: sarcoidosis. complete heart block. tito. morbid obesity. a flutter. Nephrolithiasis, calcium oxalate stone - Surgical History Reports: hysterectomy, mastectomy, pacemaker/AICD Additional surgical history: lap band. tonsillectomy. Ureteroscopy approximately 1 week ago with stent removal - Family History Additional family history: No family history of CVA - Social History Smoking Status: Never smoked Alcohol Use: None Drug Use: None Additional social history: Normally independent in ADLs Review of Systems ROS: 10pt was reviewed & negative except for what was stated in HPI & below Neurological: Reports: other (Aphasia, poor short-term memory) Physical Exam Temp Pulse Resp BP Pulse Ox 36.6 C 87 19 162/80 H 90 L 03/18/16 00:21 03/18/16 00:21 03/18/16 00:21 03/18/16 00:21 03/18/16 00:21 Constitutional: no apparent distress, appears nourished, not in pain, obese Eyes: PERRL, anicteric sclera, EOMI Ears, Nose, Mouth, Throat: moist mucous membranes, hearing normal, ears appear normal, no oral mucosal ulcers Cardiovascular: tachycardia, No systolic murmur, No irregularly irregular, No edema Respiratory: no respiratory distress, no rales or rhonchi, clear to auscultation Gastrointestinal: normoactive bowel sounds, soft, non-tender abdomen, no palpable masses Genitourinary: no bladder fullness, no bladder tenderness, other (No CVA tenderness) Skin: warm, normal color, no rashes or abrasions, no fluctuance, no induration, No mottled Neurologic: AAOx3, sensation intact bilaterally, CN II-XII Intact, other ( Ongoing expressive aphasia with word-finding difficulty), No weakness (Motor strength 5/5 bilaterally), No facial droop Psychiatric: interacting appropriately, not anxious, not encephalopathic, thought process linear Lab Data & Imaging Review 03/17/16 19:20 03/17/16 19:20 WBC 19.57 10^3/uL (3.80-9.50) H 03/17/16 19:20 RBC 4.34 10^6/uL (4.18-5.33) 03/17/16 19:20 Hgb 13.6 g/dL (12.6-16.3) 03/17/16 19:20 POC Hgb 13.6 gm/dL (12.3-15.9) 03/17/16 19:35 Hct 39.2 % (38.0-47.0) 03/17/16 19:20 POC Hct 40 % (35.5-47.5) 03/17/16 19:35 MCV 90.3 fL (81.5-99.8) 03/17/16 19:20 MCH 31.3 pg (27.9-34.1) 03/17/16 19:20 MCHC 34.7 g/dL (32.4-36.7) 03/17/16 19:20 RDW 12.5 % (11.5-15.2) 03/17/16 19:20 Plt Count 352 10^3/uL (150-400) 03/17/16 19:20 MPV 9.7 fL (8.7-11.7) 03/17/16 19:20 Neut % (Auto) 74.7 % (39.3-74.2) H 03/17/16 19:20 Lymph % (Auto) 12.1 % (15.0-45.0) L 03/17/16 19:20 [place] % (Auto) 11.5 % (4.5-13.0) 03/17/16 19:20 Eos % (Auto) 0.3 % (0.6-7.6) L 03/17/16 19:20 Baso % (Auto) 0.6 % (0.3-1.7) 03/17/16 19:20 Nucleat RBC Rel Count 0.0 % (0.0-0.2) 03/17/16 19:20 Absolute Neuts (auto) 14.63 10^3/uL (1.70-6.50) H 03/17/16 19:20 Absolute Lymphs (auto) 2.36 10^3/uL (1.00-3.00) 03/17/16 19:20 Absolute Monos (auto) 2.26 10^3/uL (0.30-0.80) H 03/17/16 19:20 Absolute Eos (auto) 0.06 10^3/uL (0.03-0.40) 03/17/16 19:20 Absolute Basos (auto) 0.11 10^3/uL (0.02-0.10) H 03/17/16 19:20 Absolute Nucleated RBC 0.00 10^3/uL (0-0.01) 03/17/16 19:20 Immature Gran % 0.8 % (0.0-1.1) 03/17/16 19:20 Immature Gran # 0.15 10^3/uL (0.00-0.10) H 03/17/16 19:20 PT 13.7 SEC (12.0-15.0) 03/17/16 19:20 INR 1.06 (0.83-1.16) 03/17/16 19:20 POC Sodium 139 mEq/L (134-144) 03/17/16 19:35 Sodium 135 mEq/L (134-144) 03/17/16 19:20 POC Potassium 3.1 mEq/L (3.3-5.0) L 03/17/16 19:35 Potassium 3.9 mEq/L (3.5-5.2) 03/17/16 19:20 POC Chloride 100 mEq/L (96-108) 03/17/16 19:35 Chloride 100 mEq/L (97-110) 03/17/16 19:20 Carbon Dioxide 20 mEq/l (22-31) L 03/17/16 19:20 Anion Gap 15 mEq/L (8-16) 03/17/16 19:20 POC BUN 11 mg/dL (7-23) 03/17/16 19:35 BUN 11 mg/dL (7-23) 03/17/16 19:20 Creatinine 0.8 mg/dL (0.6-1.0) 03/17/16 19:20 POC Creatinine 0.8 mg/dL (0.6-1.2) 03/17/16 19:35 Estimated GFR > 60 03/17/16 19:20 Glucose 192 mg/dL (70-100) H 03/17/16 19:20 POC Glucose 198 mg/dL (70-100) H 03/17/16 19:35 Calcium 9.6 mg/dL (8.5-10.4) 03/17/16 19:20 Troponin I 0.012 ng/mL (0-0.034) 03/17/16 19:20 Urine Color YELLOW 03/17/16 20:15 Urine Appearance HAZY 03/17/16 20:15 Urine pH 6.0 (5.0-7.5) 03/17/16 20:15 Ur Specific [place] 1.016 (1.002-1.030) 03/17/16 20:15 Urine Protein 1+ (NEGATIVE) H 03/17/16 20:15 Urine Ketones NEGATIVE (NEGATIVE) 03/17/16 20:15 Urine Blood 2+ (NEGATIVE) H 03/17/16 20:15 Urine Nitrate NEGATIVE (NEGATIVE) 03/17/16 20:15 Urine Bilirubin NEGATIVE (NEGATIVE) 03/17/16 20:15 Urine Urobilinogen NEGATIVE EU (0.2-1.0) 03/17/16 20:15 Ur Leukocyte Esterase 2+ (NEGATIVE) H 03/17/16 20:15 Urine RBC 50-182 /hpf (0-3) H 03/17/16 20:15 Urine WBC 10-15 /hpf (0-3) H 03/17/16 20:15 Ur Epithelial Cells TRACE /lpf (NONE-1+) 03/17/16 20:15 Urine Mucus TRACE /lpf (NONE-1+) 03/17/16 20:15 Ur Culture Indicated? INDICATED (NI) H 03/17/16 20:15 Urine Glucose NEGATIVE (NEGATIVE) 03/17/16 20:15 Visualized and Interpreted Chest x-ray results: Yes Chest X-Ray results: no infiltrate Visualized and Interpreted EKG results: Yes EKG Interpretation: Positive for: other (V paced and tachycardic) Assessment & Plan Assessment: 66-year-old female presenting with suspected sepsis secondary to complicated urinary tract infection Plan: 1. Suspected sepsis. Acute, new problem this provider, further workup indicated. Evidenced by tachycardia and leukocytosis in the setting of identifiable infection notably urinary tract infection, resulting in autonomic dysregulation in the setting of infection. -continue high rate IV fluids -send blood cultures, send urine cultures -provide empiric IV antibiotics -monitor vital signs closely 2. Complicated urinary tract infection. Evidenced by positive urinalysis, presence of urinary symptoms, presence of sepsis physiology outlined above -review of outside records including 03/07/[address] Page demonstrates that the patient did not have evidence of urinary tract infection during most recent hospitalization where urine culture was growing 2 colonies of bacteria (4,000) but urinalysis was not indicative of infection -patient with recent instrumentation including lithotripsy, ureteroscopy, stent placement, stent removal, antibiotics at that time -provide IV ceftriaxone -monitor urine culture and blood cultures for potentially resistant organisms -monitor CBC 3. Aphasic. Acute, new problem this provider, further workup indicated. Most likely secondary to infection outlined above, but possibility of TIA is concerning given her underlying atrial fibrillation. -CT angiogram without any large vessel CVA -patient unable to get MRI given her permanent pacemaker -get echocardiogram to evaluate for any significant valvular abnormality or visible left atrial thrombus -if patient's symptoms do not improve with treatment of infection, would recommend consideration of FREDDY -continue her home dosage of aspirin at this time -permanent pacemaker interrogated, evaluate for any evidence of paroxysmal or ongoing atrial fibrillation 4. Atrial fibrillation. Unclear type, remain on telemetry and interrogate device -continue on beta-jill 5. Coronary artery disease. Chronic, continue home medications Diet. Diabetic Prophylaxis. High risk patient, Lovenox 40 Code. Full Disposition. Anticipated discharge is 03/18/16, pending further workup and treatment of condition outlined above. I have discussed the patient's presentation with Dr. Armas in the emergency department, we both agree that patient should receive further workup and monitoring as outlined above.
[2016-03-18] MEDS ORDERED: traZODone 100 MG TAB ONE (01:50)
[2016-03-18] MEDS: NS 1,000 ML IV SCH ×3 (01:57→23:08)
[2016-03-18] MEDS: METOPROLOL TARTRATE 25 MG TAB PO SCH ×3 (01:58→23:11)
[2016-03-18] MEDS: traZODone 100 MG TAB PO PRN ×2 (01:58→20:43)
[2016-03-18] MEDS: CYANO/VITAMIN B12 1000 MCG TAB PO SCH ×2 (01:58→20:43)
[2016-03-18] MEDS: ACETAMINOPHEN 325 MG TAB PO PRN ×2 (01:59→13:18)
[2016-03-18] MEDS: ALPHA LIPOIC ACID 300 MG PO SCH (04:48)
[2016-03-18] MEDS: CHROMIUM PICOLINATE 500 MCG PO SCH (04:51)
[2016-03-18] MEDS: Exenatide [Byetta] 10 MCG SQ SCH ×2 (04:53→15:22)
[2016-03-18 06:25] LABS: ABSOLUTE IMMATURE GRANULOCYTES 0.14 10^3/uL (0.00-0.10); ADD DIFF? NO; ADD MORPH? NO; ADD SCAN? NO; ATYPICAL LYMPHOCYTE FLAG 20 (0-99); FRAGMENT RBC FLAG 0 (0-99); HEMATOCRIT 31.6 % (38.0-47.0); HEMOGLOBIN 10.6 g/dL (12.6-16.3); LEFT SHIFT FLG 0 (0-99); LIPEMIA HEMOLYSIS FLAG 80 (0-99); MEAN CELL HEMOGLOBIN 32.2 pg (27.9-34.1); MEAN CELL HEMOGLOBIN CONCENTR. 33.5 g/dL (32.4-36.7); MEAN PLATELET VOLUME 9.4 fL (8.7-11.7); PLATELET CLUMPS FLAG 0 (0-99); PLATELET COUNT 248 10^3/uL (150-400); RED BLOOD CELL COUNT 3.29 10^6/uL (4.18-5.33); RED CELL DISTRIBUTION WIDTH 12.6 % (11.5-15.2)
[2016-03-18 08:33] LABS: % IMMATURE GRANULYOCYTES 0.7 % (0.0-1.1); ABSOLUTE IMMATURE GRANULOCYTES 0.12 10^3/uL (0.00-0.10); ADD DIFF? NO; ADD MORPH? NO; ADD SCAN? NO; ATYPICAL LYMPHOCYTE FLAG 20 (0-99); FRAGMENT RBC FLAG 0 (0-99); HEMATOCRIT 37.7 % (38.0-47.0); HEMOGLOBIN 12.8 g/dL (12.6-16.3); LEFT SHIFT FLG 0 (0-99); LIPEMIA HEMOLYSIS FLAG 90 (0-99); MEAN CELL HEMOGLOBIN 31.1 pg (27.9-34.1); MEAN CELL VOLUME 91.5 fL (81.5-99.8); MEAN PLATELET VOLUME 9.3 fL (8.7-11.7); PLATELET CLUMPS FLAG 10 (0-99); PLATELET COUNT 290 10^3/uL (150-400); RED BLOOD CELL COUNT 4.12 10^6/uL (4.18-5.33); RED CELL DISTRIBUTION WIDTH 12.6 % (11.5-15.2)
[2016-03-18] MEDS ORDERED: Herbals/Supplements -Info Only PO SCH (09:00)
[2016-03-18 09:10] LABS: ALANINE AMINOTRANSFERASE 24 IU/L (9-52); ALBUMIN 3.6 g/dL (3.5-5.0); ALKALINE PHOSPHATASE 45 IU/L (38-126); ANION GAP 12 mEq/L (8-16); ASPARTATE AMINOTRANSFERASE 23 IU/L (14-46); BILIRUBIN,TOTAL 0.9 mg/dL (0.1-1.4); CALCIUM 9.1 mg/dL (8.5-10.4); CARBON DIOXIDE 26 mEq/l (22-31); CHLORIDE 102 mEq/L (97-110); CREATININE 0.9 mg/dL (0.6-1.0); GLOMERULAR FILTRATION RATE > 60; GLUCOSE 204 mg/dL (70-100); MAGNESIUM 1.4 mg/dL (1.6-2.3); POTASSIUM 3.6 mEq/L (3.5-5.2); SODIUM 140 mEq/L (134-144); TOTAL PROTEIN 6.3 g/dL (6.3-8.2)
[2016-03-18] MEDS: ENOXAPARIN 40 MG/0.4 ML SYR SC SCH (09:22)
[2016-03-18] MEDS: TAMSULOSIN HCL 0.4 MG CAP PO SCH (09:22)
[2016-03-18] MEDS: ROSUVASTATIN CALCIUM 40 MG TAB PO SCH (13:01)
[2016-03-18] MEDS: PANTOPRAZOLE SODIUM 40 MG TAB PO SCH (13:01)
--- NOTE | 2016-03-18 15:26 | HOSPPROG ---
Hospitalist Progress Note Assessment/Plan: # Suspected sepsis- Evidenced by tachycardia and leukocytosis ( white count 16 ) in the setting of identifiable infection notably urinary tract infection. urine and blood cultures are no growth today- patient feels symptomatically some improved -continue IV fluids- until p.o. adequate - continue empiric IV antibiotics -monitor vital signs closely # Complicated urinary tract infection- Evidenced by positive urinalysis, presence of urinary symptoms, presence of sepsis physiology outlined above patient with recent instrumentation including lithotripsy, ureteroscopy, stent placement, stent removal-antibiotics at that time - continue IV ceftriaxone -monitor urine culture and blood cultures for potentially resistant organisms -monitor CBC # Aphasic- Acute- suspecting secondary to infection outlined above- oxygen saturations 94% on 2 L however patient clinically improved from an energy standpoint this morning and still with notable aphasia on occupational therapy evaluation CT angiogram ( personally reviewed and interpreted) without any large vessel CVA -patient unable to get MRI given her permanent pacemaker - ordered echocardiogram to evaluate for any significant valvular abnormality or visible left atrial thrombus -permanent pacemaker interrogated, evaluate for any evidence of paroxysmal or ongoing atrial fibrillation - consulting neurology is the patient's deficits are persistent even with overall improvement in her physical status - continue aspirin and statin # Atrial fibrillation- Unclear type, remain on telemetry and interrogate device -continue on beta-jill # Coronary artery disease. Chronic, continue home medications # Diet. Diabetic # Prophylaxis. High risk patient, Lovenox 40 # Code. Full #Disposition- greater than 2 midnights as the patient with persistent neurologic deficits of require investigation I have discussed the case with Dr. Ross from Neurology he will evaluate and make recommendations regarding aphasia Subjective: feels stronger and improved this morning however still having word- finding difficulty Objective: Vital Signs Temp Pulse Resp BP Pulse Ox 36.6 C 80 18 109/56 L 86 L 03/18/16 12:00 03/18/16 12:00 03/18/16 12:00 03/18/16 12:00 03/18/16 12:04 Laboratory Results 03/18/16 08:27 03/18/16 08:27 03/17/16 03/18/16 03/19/16 05:59 05:59 05:59 Intake Total 1550 50 Output Total 225 Balance 1550 -175 PT 13.7 SEC (12.0-15.0) 03/17/16 19:20 INR 1.06 (0.83-1.16) 03/17/16 19:20 - Physical Exam Constitutional: appears nourished Eyes: anicteric sclera Ears, Nose, Mouth, Throat: moist mucous membranes Cardiovascular: regular rate and rhythym Respiratory: no respiratory distress, no rales or rhonchi Gastrointestinal: normoactive bowel sounds, soft, non-tender abdomen Genitourinary: no bladder fullness Skin: warm, normal color Neurologic: AAOx3, other ( word-finding difficulty), No sensation intact bilaterally, No weakness, No facial droop Psychiatric: interacting appropriately Lymph, Heme, Immunologic: no cervical LAD ICD10 Worksheet Patient Problems: Problems Problem Status Diagnosed Transient cerebral ischemia Acute Cardiac pacemaker procedure Active Complete atrioventricular block Active Left ureteral calculus Acute
--- NOTE | 2016-03-18 15:27 | ECHO ---
[id number] + + [address] : : [place] [address] : : [phone] + + Adult Echocardiographic Report + + :Name: KENZIE ROSAS CStudy Date: 03/18/2016 08:30 AM BP: 141/74 mmHg : : Hospital Admission Number: [id number] Loc ation: 214: :: 1950 Gender: Female Height: 67 in : :Age: 66 yrs Race: WH Weight: 236 lb : :Reason For Study: source of emboli : : BSA: 2.2 me ters2 : :History: aphasia : + + MMode/2D Measurements & Calculations IVSd: 1.0 cm RVDd: 3.9 cm FS: 33.4 % Ao root diam: LVPWd: 0.97 cm LVIDd: 5.0 cm EDV(Teich): 3.0 cm LVIDs: 3.3 cm 118.9 ml ESV(Teich): 45.4 ml EF(Teich): 61.8 % LVLd ap4: 9.7 cm SV(MOD-sp4): EDV(MOD-sp4): 85.0 ml 124.0 ml LVLs ap4: 8.1 cm ESV(MOD-sp4): 39.0 ml EF(MOD-sp4): 68.5 % Normal Measurement Values: + + :LVIDd (3.5-5.7cm) IVSd (0.6-1.1cm) LVPWd (0.6-1.1cm) Aortic Root (2.0-3.7cm)Left Atrium (1.5-4.0cm): :LV Vol(d) (76-115ml) LV Vol(s) (29-48ml) Ejec Fraction (50-65%)PV Bryon (0.6- 1.2m/s) TV Bryon (0.4-1.0m/s) : :MV E Bryon (0.8-1.0m/s)MV A Bryon (0.3-1.0m/s)LVOT Bryon (0.7-1.2m/s) Asc Ao Bryon ( 0.9-1.8m/s) : + + Doppler Measurements & Calculations MV E max bryon: Ao V2 max: LV V1 max: TR max bryon: 72.1 cm/sec 195.5 cm/sec 124.6 cm/sec 261.8 cm/sec MV A max bryon: Ao max PG: LV V1 max PG: TR max P.1 cm/sec 15.3 mmHg 6.2 mmHg 27.4 mmHg MV E/A: 0.68 RAP systole: 5.0 mmHg RVSP(TR): 32.4 mmHg Left Ventricle The left ventricle is normal in size. There is borderline concentric left ventricular hypertrophy. Ejection Fraction = 60%. Septal dyskinesis most likely secondary to pacing. Right Ventricle The right ventricle is normal in size and function. There is a pacemaker lead in the right ventricle. Atria The left atrial size is normal. Right atrial size is normal. There is a catheter/pacemaker lead seen in the right atrium. Mitral Valve The mitral valve is normal in structure and function. There is no mitral valve stenosis. There is trace mitral regurgitation. Tricuspid Valve The tricuspid valve is normal in structure and function. There is no tricuspid stenosis. There is mild tricuspid regurgitation. Right ventricular systolic pressure is 32mmHg. There is Doppler evidence for mild pulmonary hypertension. Aortic Valve The aortic valve is not well visualized. There is no aortic stenosis. There is no aortic insufficiency. Pulmonic Valve The pulmonic valve is not well visualized. Great Vessels The aortic root is normal size. Pericardium/Pleural There is a fat pad seen. Conclusion A two-dimensional transthoracic echocardiogram with M-mode and Doppler was performed. There is no obvious source of embolus identified. If one is highly clinically suspected, then transesophageal echocardiography should be considered. There is borderline concentric left ventricular hypertrophy. Ejection Fraction = 60%. Septal dyskinesis most likely secondary to pacing There is trace mitral regurgitation. There is mild tricuspid regurgitation. Right ventricular systolic pressure is 32mmHg. There is Doppler evidence for mild pulmonary hypertension. The aortic valve is not well visualized. No significant change compared with 08/10/2012 Final Reading Physician: Dr Leyda Mills electronically signed on 03/18/2016 03:26 PM Ordering Physician: Missael Page Performed By: Saima Randle
[2016-03-18] MEDS: FENOFIBRATE 145 MG TAB PO SCH (15:37)
[2016-03-18] MEDS ORDERED: oxyCODONE IR 5 MG TAB PO PRN (15:50)
[2016-03-18] MEDS: ASPIRIN EC 325 MG TAB PO SCH (16:21)
[2016-03-18] MEDS: CALCIUM CARBONATE 500 MG CHEWABLE TAB PO PRN ×2 (16:21→20:42)
[2016-03-18] MEDS: LIDOCAINE 5% 1 EA PATCH TD SCH (16:21)
[2016-03-18] MEDS: MAGNESIUM OXIDE 400 MG TAB PO SCH ×2 (17:05→20:42)
[2016-03-18] MEDS ORDERED: D50W 25 GM/50 ML SYR IVP PRN (17:40)
[2016-03-18] MEDS: INSULIN LISPRO 100 UNIT/ML SC SCH (18:09)
--- NOTE | 2016-03-18 20:36 | CT ---
CT Scan of the Urinary Tract (Abdomen and Pelvis Without Contrast) Indication: Worsening pain. Technique: Multidetector helical CT imaging was performed from the kidneys to the urinary bladder, w ithout contrast. Dose reduction techniques were utilized. Comparison: Pelvis dated March 05, 2016 and fluoroscopy for stent placement dated March 07, 2016 . Findings: The left ureteral stent and left ureteral calculus are no longer present. Left hydronephr osis has resolved. Minimal persistent perinephric stranding surrounds the left kidney, and new mild perinephric edema surrounds the right kidney. A punctate calculus in the superior pole right kidney and fluid-attenuation cyst in the right kidney are unchanged. No ureteral calculi have developed on the right. The urinary bladder is nearly completely empty. No pneumoperitoneum, lymphadenopathy, or mass. Numerous diverticula throughout the descending and sigmoid colon are unchanged. No evidence of acute diverticulitis. The noncontrast liver, spleen, pancreas, and adrenal glands are normal. The positioning of the lap b and, slipped inferiorly along the cardiac segment of the stomach, is unchanged in configuration. Three calcified gallstones dependent in the gallbladder lumen are unchanged. No pericholecystic flui d or stranding. No biliary dilation or common bile duct stone. The heart size is normal. No pericardial or pleural effusion. Minimal bibasilar atelectasis is unch anged. The abdominal aorta is normal caliber, with mild calcified plaque. No fracture or bone lesio ns. The uterus is either atrophic or surgically absent. No adnexal mass. No bone lesion. Impression: 1. Left hydronephrosis has resolved, and the previous left ureteral calculus and stent are no longer in place. 2. New minimal right perinephric edema, without hydronephrosis or ureteral calculus. Query pyelonep hritis. Recommend correlation with urinary labwork. 3. Diverticulosis, unchanged. No acute diverticulitis. 4. Cholelithiasis. No CT evidence of acute cholecystitis or biliary obstruction. Attention: This CT examination is specifically designed to evaluate patients who are clinically susp ected of having acute obstructive uropathy. This examination does not use radiographic contrast, and as such, provides only a limited evaluation of the abdomen, pelvis and retroperitoneum. If there i s further clinical suspicion for pathological conditions other than obstructive uropathy, a complete CT evaluation of the abdomen and pelvis utilizing intravenous, oral, and rectal contrast should be co nsidered. E:RH/justo
[2016-03-18] MEDS: PATCH REMOVAL 1 EA PATCH TD SCH (20:45)
[2016-03-19 05:15] LABS: HEMOGLOBIN 11.2 g/dL (12.6-16.3); MEAN CELL HEMOGLOBIN 30.6 pg (27.9-34.1); MEAN CELL HEMOGLOBIN CONCENTR. 32.9 g/dL (32.4-36.7); MEAN CELL VOLUME 92.9 fL (81.5-99.8); RED BLOOD CELL COUNT 3.66 10^6/uL (4.18-5.33); RED CELL DISTRIBUTION WIDTH 12.6 % (11.5-15.2)
[2016-03-19 05:25] LABS: ANION GAP 10 mEq/L (8-16); CALCIUM 8.9 mg/dL (8.5-10.4); CARBON DIOXIDE 26 mEq/l (22-31); CHLORIDE 102 mEq/L (97-110); CREATININE 0.9 mg/dL (0.6-1.0); GLOMERULAR FILTRATION RATE > 60; GLUCOSE 222 mg/dL (70-100); POTASSIUM 3.8 mEq/L (3.5-5.2); SODIUM 138 mEq/L (134-144)
[2016-03-19] MEDS: CHROMIUM PICOLINATE 500 MCG PO SCH (05:51)
[2016-03-19] MEDS: ALPHA LIPOIC ACID 300 MG PO SCH (05:51)
[2016-03-19] MEDS: ACETAMINOPHEN 325 MG TAB PO PRN ×3 (06:07→22:44)
[2016-03-19] MEDS: INSULIN LISPRO 100 UNIT/ML SC SCH ×3 (08:09→17:47)
[2016-03-19] MEDS: TAMSULOSIN HCL 0.4 MG CAP PO SCH (08:17)
[2016-03-19] MEDS: ENOXAPARIN 40 MG/0.4 ML SYR SC SCH (08:17)
[2016-03-19] MEDS: ASPIRIN EC 325 MG TAB PO SCH (08:17)
[2016-03-19] MEDS: AMPICILLIN SODIUM 2 GM in NS 100 ML IV SCH ×4 (10:02→21:31)
[2016-03-19] MEDS: LIDOCAINE 5% 1 EA PATCH TD SCH (10:05)
--- NOTE | 2016-03-19 10:17 | GCON ---
[f rep st] CONSULTATION NEUROLOGY CONSULTATION REFERRING PHYSICIAN: Spring Cornejo MD HISTORY: The patient is a very pleasant 66-year-old lady with a history of diabetes diagnosed 10 years ago. In the last week or 2, she had a kidney stone removed by lithotripsy and then a stent placed, is on antibiotics. She developed flank pain over the last few days and then yesterday some confusion. Because of the confusion, she was brought to the hospital and essentially was found to have probable urosepsis from a complicated UTI. She is on fluids and IV ceftriaxone. She has trouble remembering segments of yesterday with confusion and word-finding difficulties. With fluid, antibiotics and time, all of these symptoms have resolved. Her close friend, Neyda, is present and confirms she is back to baseline and resolved with treatment, and the patient is taking a nap. She had no focal motor or sensory deficits. No field cuts. REVIEW OF SYSTEMS: Ten-point review of systems was done and only pertinent to the HPI. For past medical history, social history, family history, home meds, and allergies, see Dr. Page's admitting history and physical. PHYSICAL EXAM: VITAL SIGNS: Blood pressure 109/56, temperature 36.7, O2 sats 96 %, heart rate 68. GENERAL: No acute distress, very pleasant. HIGHER MENTAL FUNCTION: Names 5/5. Repeats 5/5. Follows commands 5/5. No aphasia. Cranial nerves: Normal 2 through 7, 11, and 12. Motor: Normal strength, tone and deep tendon reflexes throughout. Sensory: Normal to light touch in all 4 extremities. Coordination: Normal coordination in upper and lower extremities. IMAGING: The patient had CT of the head, which showed no acute abnormalities. She had a CTA of the head and neck, which showed some mild atherosclerosis without any acute thrombus. ECG showed a paced ventricular rhythm consistent with her known pacemaker. Echocardiogram showed no intracardiac thrombus. Left atrium was of normal size. Changes of the pacemaker were present. IMPRESSION AND PLAN: 1. Metabolic encephalopathy, resolved. 2. Possible urosepsis, being treated with antibiotics and fluids. The patient's clinical history and physical exam are most consistent with metabolic encephalopathy that is now resolved. This was likely related to her underlying complex UTI and question urosepsis, which is being treated. Her CTA of the head and neck showed no acute thrombus. Head CT was unremarkable. Echocardiogram showed no intracardiac thrombus and ECG shows a paced rhythm. She has no deficits on exam. She is doing well and is otherwise stable with her treatment for infection. I do not recommend any further testing for the time being. Please call if there are any further neurologic changes and we will reassess. Otherwise, we will continue to follow this very pleasant patient as needed. Thank you for this consultation. /[id number]/MODL MTDD
[2016-03-19] MEDS ORDERED: AMPICILLIN SODIUM 2 GM in NS 100 ML IV SCH (12:00)
[2016-03-19] MEDS: FENOFIBRATE 145 MG TAB PO SCH (12:50)
[2016-03-19] MEDS: METOPROLOL TARTRATE 25 MG TAB PO SCH ×2 (12:50→21:28)
[2016-03-19] MEDS: ROSUVASTATIN CALCIUM 40 MG TAB PO SCH (12:50)
[2016-03-19] MEDS: PANTOPRAZOLE SODIUM 40 MG TAB PO SCH (12:50)
[2016-03-19] MEDS: MAGNESIUM OXIDE 400 MG TAB PO SCH (15:42)
--- NOTE | 2016-03-19 16:20 | HOSPPROG ---
Hospitalist Progress Note Assessment/Plan: # sepsis- Evidenced by tachycardia and leukocytosis ( white count 16) in the setting of identifiable infection notably urinary tract infection. blood cultures are no growth today- urine culture grows Enterococcus faecalis -continue IV fluids- until p.o. adequate - change IV antibiotics to ampicillin -monitor vital signs closely # Complicated urinary tract infection- CT abdomen( personally reviewed and interpreted) shows findings consistent with pyelonephritis patient with recent instrumentation including lithotripsy, ureteroscopy, stent placement, stent removal-antibiotics at that time - IV ampicillin - reviewed case with infectious disease they recommend waiting for blood cultures to be negative times 24 hours prior to DC - monitor CBC # Aphasic- Acute- suspecting secondary to infection outlined above- oxygen saturations 94% on 2 L - resolved overnight - thank you to neurology consultation - continue to monitor # Atrial fibrillation- Unclear type, remain on telemetry and interrogate device -continue on beta-jill # Coronary artery disease. Chronic, continue home medications # Diet. Diabetic # Prophylaxis. High risk patient, Lovenox 40 # Code. Full #Disposition- greater than 2 midnights as the patient with persistent neurologic deficits of require investigation I have discussed the case with Dr. Park- because of recent urinary instrumentation recommend waiting for blood cultures to be negative times 24 hours Subjective: feels much better Objective: Vital Signs Temp Pulse Resp BP Pulse Ox 36.4 C 72 16 121/74 H 93 03/19/16 15:12 03/19/16 15:12 03/19/16 15:12 03/19/16 15:12 03/19/16 15:12 Laboratory Results 03/19/16 04:22 03/19/16 04:22 03/18/16 03/19/16 03/20/16 05:59 05:59 05:59 Intake Total 1750 220 Output Total 900 Balance 850 220 PT 13.7 SEC (12.0-15.0) 03/17/16 19:20 INR 1.06 (0.83-1.16) 03/17/16 19:20 - Physical Exam Constitutional: appears nourished Eyes: anicteric sclera Ears, Nose, Mouth, Throat: moist mucous membranes Cardiovascular: regular rate and rhythym Respiratory: no respiratory distress, no rales or rhonchi Gastrointestinal: normoactive bowel sounds, soft, non-tender abdomen Genitourinary: no bladder fullness Skin: warm, normal color Musculoskeletal: No asymmetric calves Neurologic: AAOx3 Psychiatric: interacting appropriately, not anxious Lymph, Heme, Immunologic: no cervical LAD ICD10 Worksheet Patient Problems: Problems Problem Status Diagnosed Transient cerebral ischemia Acute Cardiac pacemaker procedure Active Complete atrioventricular block Active Left ureteral calculus Acute
[2016-03-19] MEDS ORDERED: FENOFIBRATE 145 MG TAB PO SCH (18:00)
[2016-03-19] MEDS: PATCH REMOVAL 1 EA PATCH TD SCH (21:30)
[2016-03-20] MEDS: ALPHA LIPOIC ACID 300 MG PO SCH (01:07)
[2016-03-20] MEDS: AMPICILLIN SODIUM 2 GM in NS 100 ML IV SCH ×3 (01:46→11:09)
[2016-03-20 05:31] LABS: HEMATOCRIT 31.7 % (38.0-47.0); HEMOGLOBIN 10.7 g/dL (12.6-16.3); MEAN CELL HEMOGLOBIN 31.8 pg (27.9-34.1); MEAN CELL HEMOGLOBIN CONCENTR. 33.8 g/dL (32.4-36.7); MEAN CELL VOLUME 94.3 fL (81.5-99.8); RED BLOOD CELL COUNT 3.36 10^6/uL (4.18-5.33); RED CELL DISTRIBUTION WIDTH 12.3 % (11.5-15.2)
[2016-03-20 05:55] LABS: ANION GAP 9 mEq/L (8-16); CALCIUM 8.8 mg/dL (8.5-10.4); CARBON DIOXIDE 30 mEq/l (22-31); CHLORIDE 104 mEq/L (97-110); CREATININE 0.9 mg/dL (0.6-1.0); GLOMERULAR FILTRATION RATE > 60; GLUCOSE 204 mg/dL (70-100); POTASSIUM 4.2 mEq/L (3.5-5.2); SODIUM 143 mEq/L (134-144)
[2016-03-20] MEDS: ACETAMINOPHEN 325 MG TAB PO PRN (06:00)
[2016-03-20] MEDS ORDERED: metFORMIN HCL 500 MG TAB PO SCH (08:00)
[2016-03-20 08:10] VITALS: BP 132/77; PULSE 62; RESP 17; TEMP 97.5; O2SAT 92
[2016-03-20] MEDS: MAGNESIUM OXIDE 400 MG TAB PO SCH (08:12)
[2016-03-20] MEDS: ENOXAPARIN 40 MG/0.4 ML SYR SC SCH (08:12)
[2016-03-20] MEDS: TAMSULOSIN HCL 0.4 MG CAP PO SCH (08:13)
[2016-03-20] MEDS: ASPIRIN EC 325 MG TAB PO SCH (08:13)
[2016-03-20] MEDS: METOPROLOL TARTRATE 25 MG TAB PO SCH (08:13)
[2016-03-20] MEDS: LIDOCAINE 5% 1 EA PATCH TD SCH (08:15)
[2016-03-20] MEDS: INSULIN LISPRO 100 UNIT/ML SC SCH (08:26)
[2016-03-20] MEDS ORDERED: CHROMIUM PICOLINATE 500 MCG PO SCH (09:00)
[2016-03-20] MEDS ORDERED: CYANO/VITAMIN B12 1000 MCG TAB PO SCH (09:00)
--- NOTE | 2016-03-20 18:13 | GDS ---
[f rep st] DISCHARGE SUMMARY DISCHARGE DIAGNOSES: Include: 1. Sepsis, secondary to urinary source. 2. Complicated urinary tract infection. 3. Acute asphasia and encephalopathy, secondary to sepsis. 4. Atrial fibrillation. 5. Coronary artery disease. 6. Diabetes. HISTORY OF PRESENT ILLNESS: This is a 66-year-old female with a history of diabetes and recent urina ry instrumentation by Dr. Barrett for ureterolithiasis and stent removal. [facility] of [facility] and confusion. For details of patient's initial present ation, please see the history and physical dated 03/18/2016. CONSULTATIVE SERVICES ON THIS PATIENT: Include Neurology. PROCEDURES ON THIS PATIENT: On 03/17/2016, patient had a CTA of the head and neck that showed no sig nificant stenoses or evidence of acute thrombus. On 03/17/2016, patient had a noncontrast CT of the head that showed no acute intracranial abnormality. On 03/18/2016, patient had a transthoracic echoc ardiogram that showed normal LV size and function. On 03/18/2016, patient had a noncontrast CT of th e abdomen that showed hydronephrosis had resolved where the previous ureteral calculus and stent had been with new right perinephric edema without stone or hydro, query of pyelonephritis. HOSPITAL COURSE BY ISSUE: 1. Acute aphasia and confusion: Patient was initially worked up for stroke. Imaging and evaluation were negative. It was presumed it was likely related to her sepsis presentation. She was treated a ggressively with IV fluids and supportive care, and had resolution of her symptoms over 72 hours. Georges william was evaluated by Neurology the morning after presentation and they too felt that likely it was apha dom related to her sepsis. On the day of disposition, she is back to her normal mental status. With out changes to her outpatient meds. 2. Complicated UTI: Patient had recently been instrumented, had abdominal imaging consistent with p yelonephritis on the right. Patient was initiated on ceftriaxone. Urine was sent for culture and ul timately grew Enterococcus faecalis. She was switched to appropriate antibiotics the day prior to di sposition and had complete resolution of her white count after initiation of penicillin-based antibio tic. She is being discharged on a full-course of amoxicillin and is to follow on her normal schedule with Dr. Hernández. 3. Sepsis: Patient presented with leukocytosis, tachycardia presumed from a urinary source. We did ultimately find the source and treated with appropriate antibiotics. Her tachycardia and leukocytos is are resolved on the day of disposition. We did wait 48 hours for her blood cultures to be negativ e prior to disposition as she was high-risk for developing bacteremia with her recent instrumentation . MEDICATIONS AT THE TIME OF DISPOSITION: Please reference medication reconciliation printed on 2016. FOLLOWUP APPOINTMENTS FOR THIS PATIENT: Include with her primary care provider for post disposition followup in the next 7-10 days, with Dr. Hernández in 3 weeks' time for her post stent removal followup. PENDING STUDIES AT THE TIME OF THIS DICTATION: Include blood cultures, which are preliminary no grow th to date. I spent greater than 30 minutes in the planning and coordination of this discharge. /[id number]/MODL
== END 2016-03-20 12:20 | disposition home or self-care (01) | DRG 871 ==
LOC: F2W 23:50 → OBSVTOIN 03-18 15:30
PROVIDERS: ADMIT Internal Medicine; ATTEND Hospitalist
DX: A41.81 Sepsis due to Enterococcus (principal); N10 Acute pyelonephritis; G93.41 Metabolic encephalopathy; I48.91 Unspecified atrial fibrillation; Z95.0 Presence of cardiac pacemaker; I25.10 Atherosclerotic heart disease of native coronary artery without angina pectoris; E11.9 Type 2 diabetes mellitus without complications; D86.0 Sarcoidosis of lung; E66.01 Morbid (severe) obesity due to excess calories; Z68.36 Body mass index [BMI] 36.0-36.9, adult; G47.33 Obstructive sleep apnea (adult) (pediatric); Z85.3 Personal history of malignant neoplasm of breast; Z90.12 Acquired absence of left breast and nipple
CPT/HCPCS: 82947-QW; 97116-GP; 97162-GP; 97165-GO; 97530-GO; 97535-GO; G0378; G8978-GP-CI; G8979-GP-CI; G8980-GP-CI; G8987-GO-CI; G8987-GO-CJ; G8988-GO-CI; G8989-GO-CI; J0290; J0696; J1650; Q9967

== ENCOUNTER → 2016-06-04 | Outpatient (CLI) | payer BC | LOC: FIMAGING 12:32 | PROVIDERS: ATTEND Internal Medicine Hematology & Oncology | DX: Z12.31 Encounter for screening mammogram for malignant neoplasm of breast (principal); Z85.3 Personal history of malignant neoplasm of breast; Z80.3 Family history of malignant neoplasm of breast | CPT/HCPCS: G0202-52 ==

== ENCOUNTER → 2017-07-31 | Outpatient (CLI) | payer BC | LOC: FIMAGING 11:48 | PROVIDERS: ATTEND Internal Medicine | DX: Z12.31 Encounter for screening mammogram for malignant neoplasm of breast (principal); Z85.3 Personal history of malignant neoplasm of breast; Z80.3 Family history of malignant neoplasm of breast; Z90.12 Acquired absence of left breast and nipple ==

== ENCOUNTER 2017-08-28 17:05 | Observation (INO) | payer BC ==
[2017-08-28] MEDS ORDERED: NS 1,000 ML IV ONE ×2 (17:38→20:34)
--- NOTE | 2017-08-28 17:43 | EDPHY ---
HPI/HX/ROS/PE/MDM Narrative: CHIEF COMPLAINT: Black stool HPI: The patient is a 67 y/o female with a complicated medical history complaining of two episodes of black stool today. She had a bowel movement around 11:00 this morning, about 6.5 hours ago that she describes as "soft, it started out brown and ended up charcoal black, it was impressive." She denies associated pain, but says she has felt "funky, except I don't even know what that means except I don't feel normal. I'm tired." Later today she had a second bowel movement that was also black and looser. She had normal meals last night and this morning and cannot identify anything she's consumed that could cause black stools. She denies recent use of Pepto-Bismol, raw meat, or iron supplements. She notes she had a prior episode of black stools two years ago after "binging on Oreos." She has had a prior colonoscopy and endoscopy and last year at [facility] she had "precancerous tumors in my gut" removed along with "a lot of rearranging." [facility] records shows she had a laparoscopic cholecystectomy , GIST excision, and becka reconstruction in November 2016. She denies abdominal pain, fever, vomiting, chest pain, dyspnea, recent illness, or recent trauma. She does note mild headaches 3/10 in severity over the past few days that are abnormal for her. She denies anticoagulant use. REVIEW OF SYSTEMS: Aside from elements discussed in the HPI, a comprehensive 10-point review of systems was reviewed and is negative. PMH: 1. Atrial fibrillation/atrial flutter 2. Coronary artery disease 3. Diabetes type 2 4. Sarcoidosis 5. Heart block 6. Osteoarthritis 7. Morbid obesity 8. Nephrolithiasis with calcium oxalate stone; lithotripsy, stent, ureteroscopy 9. Sepsis and encephalopathy with aphasia secondary to UTI - admitted 03/17/16 10. Diverticulitis 11. Chronic neck pain 12. COPD 13. Breast cancer PSH: 1. Hysterectomy 2. Mastectomy, left breast 3. Pacemaker/AICD 4. Lap band 5. Tonsillectomy 6. Laparoscopic cholecystectomy, GIST excision, and becka reconstruction at [facility] 2016 Prior medical records reviewed including admission 03/17/16 for aphasia due to sepsis, ED visit 03/15/15 for black stool, and [facility] records for abdominal surgeries at [facility] 2016. SOCIAL HISTORY: Nonsmoker, no alcohol. Lives in [place]. Retired. PHYSICAL EXAM: General:Patient is alert, in no acute distress. ENT:Eyes are normal to inspection. ENT inspection normal. Neck: Normal inspection. Full range of motion. Respiratory:No respiratory distress. Breath sounds normal bilaterally. Cardiovascular: Regular rate and rhythm. Strong peripheral pulses. Normal cap refill. Abdomen:The abdomen is nontender to palpation. There are no peritoneal signs. Back: Normal to inspection. No tenderness to palpation. Skin: Normal color. No rash. Warm and dry. Extremities: Normal appearance. Full range of motion. Neuro: Oriented x3. Normal motor function. Normal sensory function. ED Course: This is a 67 y/o female with a complicated medical history who presents for evaluation after two episodes of non-painful black bowel movements today. Her exam is unremarkable. Plan for IV, labs, stool sample, EKG. Patient has been unable to provide stool sample. Rectal exam performed and sample sent for occult testing. Stool is positive for blood. H&H are normal. The 12 lead EKG was interpreted by myself. See hard copy and/or "tracemaster" electronic copy for interpretation. Spoke with hospitalist service. Dr. Douglas accepts admission for GI bleed. 2019: Consulted with Dr. Boogie, GI. He will consult during admission. - Data Points Laboratory Results: Laboratory Results 08/28/17 17:45 08/28/17 17:45 08/28/17 08/28/17 08/28/17 19:40 17:45 17:45 WBC RBC Hgb Hct MCV MCH MCHC RDW Plt Count MPV Neut % (Auto) Lymph % (Auto) Acadia % (Auto) Eos % (Auto) Baso % (Auto) Nucleat RBC Rel Count Absolute Neuts (auto) Absolute Lymphs (auto) Absolute Monos (auto) Absolute Eos (auto) Absolute Basos (auto) Absolute Nucleated RBC Immature Gran % Immature Gran # PT 13.0 SEC SEC (12.0-15.0) INR 0.96 (0.83-1.16) APTT 28.8 SEC SEC (23.0-38.0) Sodium 138 mEq/L mEq/L (135-145) Potassium 4.2 mEq/L mEq/L (3.3-5.0) Chloride 104 mEq/L mEq/L (97-110) Carbon Dioxide 27 mEq/l mEq/l (22-31) Anion Gap 7 mEq/L L mEq/L (8-16) BUN 27 mg/dL H mg/dL (7-23) Creatinine 0.7 mg/dL mg/dL (0.6-1.0) Estimated GFR > 60 Glucose 122 mg/dL H mg/dL (70-100) Calcium 9.9 mg/dL mg/dL (8.5-10.4) Stool Occult Bld Scrn POSITIVE H (NEGATIVE) 08/28/17 17:45 WBC 11.43 10^3/uL H 10^3/uL (3.80-9.50) RBC 4.24 10^6/uL 10^6/uL (4.18-5.33) Hgb 13.1 g/dL g/dL (12.6-16.3) Hct 39.2 % % (38.0-47.0) MCV 92.5 fL fL (81.5-99.8) MCH 30.9 pg pg (27.9-34.1) MCHC 33.4 g/dL g/dL (32.4-36.7) RDW 12.8 % % (11.5-15.2) Plt Count 337 10^3/uL 10^3/uL (150-400) MPV 9.8 fL fL (8.7-11.7) Neut % (Auto) 60.7 % % (39.3-74.2) Lymph % (Auto) 25.4 % % (15.0-45.0) Acadia % (Auto) 8.4 % % (4.5-13.0) Eos % (Auto) 3.8 % % (0.6-7.6) Baso % (Auto) 0.9 % % (0.3-1.7) Nucleat RBC Rel Count 0.0 % % (0.0-0.2) Absolute Neuts (auto) 6.95 10^3/uL H 10^3/uL (1.70-6.50) Absolute Lymphs (auto) 2.90 10^3/uL 10^3/uL (1.00-3.00) Absolute Monos (auto) 0.96 10^3/uL H 10^3/uL (0.30-0.80) Absolute Eos (auto) 0.43 10^3/uL H 10^3/uL (0.03-0.40) Absolute Basos (auto) 0.10 10^3/uL 10^3/uL (0.02-0.10) Absolute Nucleated RBC 0.00 10^3/uL 10^3/uL (0-0.01) Immature Gran % 0.8 % % (0.0-1.1) Immature Gran # 0.09 10^3/uL 10^3/uL (0.00-0.10) PT INR APTT Sodium Potassium Chloride Carbon Dioxide Anion Gap BUN Creatinine Estimated GFR Glucose Calcium Stool Occult Bld Scrn Medications Given: Discontinued Medications Sodium Chloride (Ns) 1,000 mls @ 0 mls/hr IV EDNOW ONE; Wide Open PRN Reason: Protocol Stop: 08/28/17 17:39 Last Admin: 08/28/17 17:48 Dose: 1,000 mls General Time Seen by Provider: 08/28/17 17:27 Initial Vital Signs: Initial Vital Signs Temperature (C) 36.6 C 08/28/17 17:10 Heart Rate 95 08/28/17 17:10 Respiratory Rate 16 08/28/17 17:10 Blood Pressure 131/90 H 08/28/17 17:10 O2 Sat (%) 94 08/28/17 17:10 O2 Delivery Mode Room Air Allergies/Adverse Reactions: No Known Allergies Allergy (Verified 03/05/16 18:23) Home Medications: Medication Instructions Recorded Alpha Lipoic Acid 300 mg PO DAILY@06/14/12 Magnesium 500 mg PO DAILY@06/14/12 Rosuvastatin Calcium [Crestor 40mg 40 mg PO DAILY@06/14/12 (*)] Chromium Picolinate 500 mcg PO DAILY@03/05/16 Cyanocobalamin [Vitamin B12 (*)] 1,000 mcg PO DAILY@03/05/16 Herbals/Supplements -Info Only 1 ea PO DAILY 03/05/16 Lansoprazole [Prevacid] 15 mg PO DAILY@03/05/16 Metoprolol Tartrate [Lopressor 25 25 mg PO BID@03/05/16 mg (*)] diphenhydrAMINE [Benadryl 25 MG 25 mg PO HS PRN 03/05/16 (*)] Acetaminophen [Tylenol 325mg (*)] 650 mg PO Q4HRS PRN #0 tab 03/06/16 Albuterol Hfa Anes Only [Proair 2 puffs IH QID PRN 03/17/16 Hfa Icu (*)] Benazepril/Hydrochlorothiazide 1 each PO DAILY 03/17/16 [Benazepril-Hctz 20-12.5 mg Tab] metFORMIN HCL [Glucophage 500 mg 1,000 mg PO BIDMEAL 03/17/16 (*)] Departure - Departure Disposition: [facility] Inpatient Acute Clinical Impression: GI bleed Qualifiers: GI bleed type/associated pathology: unspecified gastrointestinal hemorrhage type Qualified Code(s): K92.2 - Gastrointestinal hemorrhage, unspecified Condition: Fair Referrals: Larisa Doherty MD [Primary Care Provider] - As per Instructions Report Scribed for: Andrei Westbrook Report Scribed by: Vanessa Steele Date of Report: 08/28/17 Time of Report: 17:30 Physician Review and Approval Statement: Portions of this note were transcribed by an ED scribe. I personally performed the history, physical exam, and medical decision making; and confirm the accuracy of the information in the transcribed note.
[2017-08-28 17:59] LABS: PLATELET COUNT 337 10^3/uL (150-400)
[2017-08-28 18:08] LABS: INR 0.96 (0.83-1.16)
--- NOTE | 2017-08-28 19:52 | CPEKG ---
Heart Rate: 97 RR Interval: 619 P-R Interval: 129 QRSD Interval: 164 QT Interval: 420 QTC Interval: 534 P Lancaster: 0 QRS Lancaster: 264 T Wave Lancaster: 108 EKG Severity - ABNORMAL ECG - EKG Impression: VENTRICULAR-PACED RHYTHM Electronically Signed By: Andrei Westbrook 28-Aug-2017 22:18:37
[2017-08-28] MEDS ORDERED: ONDANSETRON DISINTEGRATING 4 MG TAB PO PRN (20:12)
[2017-08-28] MEDS ORDERED: ACETAMINOPHEN 325 MG TAB PO PRN (20:12)
[2017-08-28] MEDS ORDERED: ONDANSETRON 4 MG/2 ML VIAL IVP PRN (20:12)
[2017-08-28] MEDS ORDERED: PANTOPRAZOLE SODIUM 40 MG VIAL IVP ONE (20:19)
[2017-08-28] MEDS ORDERED: ALBUTEROL 60 PUFFS/8 GM MDI IH PRN (22:14)
[2017-08-28] MEDS ORDERED: NS 1,000 ML IV SCH (22:15)
--- NOTE | 2017-08-28 23:14 | GHP ---
[f rep st] HISTORY AND PHYSICAL DATE OF ADMISSION: 08/28/2017 CHIEF COMPLAINT: Melena. HISTORY OF PRESENT ILLNESS: A pleasant 67-year-old female with history of atrial fibrillation/flutter, diabetes, and diverticulitis, presenting with melena. She has noted a headache for the last couple days and very fatigued. This morning she had a loose black stool that was very large. She then had diarrhea once that was completely black. Denies abdominal pain. Has not traveled out of the country. She was visiting her daughter in [place] for a week. No iron supplementation or Pepto-Bismol at home. No NSAID use. Only takes Tylenol for pain. No dizziness, lightheadedness. Did have a little bit of shortness of breath in the emergency room. Had a laparoscopic cholecystectomy, GIST excision, and RUE reconstruction, November 2016. REVIEW OF SYSTEMS: I completed a 10-point review of systems, negative except as noted in HPI. PAST MEDICAL HISTORY: 1. Atrial fibrillation/flutter. 2. Coronary artery disease. 3. Heart block, status post pacemaker. 4. Sarcoid. 5. Kidney stones, status post lithotripsy and stent placement. 6. Diabetes. 7. History of gallstones. 8. History of GIST. 9. Hypertension. 10. ESTHER, on CPAP. 11. Breast cancer. PAST SURGICAL HISTORY: Hysterectomy, mastectomy, pacemaker, lap band, tonsillectomy, GIST excision, a RUE reconstruction, cholecystectomy. FAMILY HISTORY: Mother with ulcers. Father with a heart murmur and cancer. SOCIAL: Lives in [place] alone with her dog. Occasional alcohol. No illicits or tobacco. ALLERGIES: None. HOME MEDICATIONS: Vitamin D3, aspirin 81 mg daily, omeprazole 20 mg daily, Tylenol, herbal supplement, Tricor 140 mg daily, metformin 1000 mg b.i.d., Crestor 40 mg daily, metoprolol 25 mg b.i.d., vitamin B12, benazepril/ hydrochlorothiazide 20/12.5, albuterol. PHYSICAL EXAMINATION: VITAL SIGNS: Temperature 36.3, blood pressure 155/99, heart rate in 90s, respirations 16, 94% on room air. GENERAL: She is obese, sitting on bed, no acute distress. HEENT: PERRLA. Mild conjunctival pallor. Oropharynx clear. CV: Regular rate and rhythm. LUNGS: Clear. ABDOMEN: Soft , obese, epigastric tenderness. Positive bowel sounds. : No Sandoval. MUSCULOSKELETAL: 5/5 upper and lower extremity strength. NEURO: 2 through 12 intact. PSYCH: Alert and oriented x3. LABS: WBC 11, hemoglobin 13, hematocrit 39, platelets 337. Coags within normal. Sodium 138, potassium 4.2, chloride 107, carbon dioxide 27, anion gap 7 , BUN 27, creatinine 0.7, glucose 122, calcium 9.9. Fecal occult blood positive. DIAGNOSTIC DATA: EKG, personally reviewed by me, ventricular paced. ASSESSMENT AND PLAN: 1. Melena: Positive fecal occult blood. Denies nonsteroidal anti- inflammatory drugs. Hemodynamically stable. IV PPI b.i.d. Dr. Case with Gastroenterology will consult in the morning. Hold aspirin. Query if bleed is from prior abdominal surgeries. 2. Hypertension: Will hold antihypertensive with gastrointestinal bleed. 3. Atrial fibrillation/flutter: Monitor on telemetry. We will resume her beta jill, hold the aspirin. 4. Hyperlipidemia: Resume home medications. 5. History of heart block with pacemaker in place. 6. History of breast cancer, status post mastectomy. 7. Coronary artery disease: Continue beta jill TriCor. Hold aspirin. 8. Diabetes: Metformin. 9. History of gastrointestinal stromal tumor, status post excision at [place]. 10. Diet: Clears, nothing by mouth after midnight. 11. Disposition: Patient warrants observation admission for acute gastrointestinal bleed requiring intravenous proton pump inhibitor and a gastroenterology consultation. /[id number]/MODL MTDD
[2017-08-28] MEDS ORDERED: FENOFIBRATE 145 MG TAB PO SCH (23:25)
[2017-08-28] MEDS ORDERED: ROSUVASTATIN CALCIUM 40 MG TAB PO SCH (23:30)
[2017-08-29] MEDS ORDERED: PANTOPRAZOLE SODIUM 40 MG VIAL IVP SCH ×2 (02:19→09:00)
[2017-08-29] MEDS ORDERED: metFORMIN HCL 500 MG TAB PO SCH (08:00)
--- NOTE | 2017-08-29 08:00 | GCON ---
[f rep st] CONSULTATION INPATIENT CONSULTATION REFERRING PHYSICIAN: Ana Douglas MD REASON FOR CONSULTATION: Melena. Briefly, the patient is a pleasant 67-year-old female, who presented to the emergency room on , with chief complaint of feeling faint after having 2 loose, black bowel movements. She reports a recent history of upper intestinal pain and discomfort, dyspepsia, heartburn, nausea. She also has background of acid reflux. She had been using proton-pump inhibitors on a regular basis and feeling better. She recently weaned from once a day to every other day and stopped her proton-pump inhibito r. She reports her abdominal symptoms became worse. She had not resumed her proton-pump inhibitor. She takes a low-dose aspirin every day but denies any other nonsteroidal therapies. She does not ta ke anticoagulant therapies. Her past medical history is notable for a complicated upper intestinal surgery related to a distal st omach GIST tumor. She reports she had a fairly complicated surgery and a subsequent revision. She r eports that the margins of her final resection were clear. She is not completely certain of her post operative anatomy. She believes that her surgical result may have led to a result similar to that of gastric bypass, but she is not certain. She reports no difficulty with eating. She denies early sa tiety. She has had no weight loss. REVIEW OF SYSTEMS: A complete 10-point review of systems was discussed with the patient. The pertin ent positives and negatives are detailed in the History of Present Illness. PAST MEDICAL HISTORY: Includes atrial fibrillation/flutter with pacemaker, coronary artery disease, type 2 diabetes, sarcoidosis, complete heart block, osteoarthritis, morbid obesity, history of divert iculitis, COPD, breast cancer, history of GIST excision with some form of Jhon-en-Y reconstruction, L ap-Band placement, mastectomy, hysterectomy, pacemaker/AICD placement. SOCIAL HISTORY: She does not smoke. She drinks very rare alcohol. She lives in [place]. She is retired. FAMILY HISTORY: She reports her sister has had breast lumps, and her father had a bone cancer. ALLERGIES: None. OUTPATIENT MEDICATIONS: Include vitamin D, aspirin, omeprazole (although not recently), Tylenol, mul tiple herbal supplements, TriCor, metformin, Crestor, metoprolol, vitamin B12, benazepril, hydrochlor othiazide, and albuterol. PHYSICAL EXAM: GENERAL: This is an obese well-developed female in no apparent distress. HEENT: He r pupils are equal, round, reactive to light and accommodation. Her sclerae are nonicteric. Her madhuri pharynx is clear. HEART: Regular with normal rate and rhythm without murmur. LUNGS: Clear to ausc ultation with good respiratory effort. ABDOMEN: Soft, obese with mild epigastric tenderness. She h as positive bowel sounds. There is no rebound. MUSCULOSKELETAL: Normal strength. NEURO: Focally intact without deficit. PSYCH: The patient is alert and oriented x3 with normal mood and affect. S KIN: Warm and dry without rash. LABORATORY TESTING: White count of 11, hemoglobin of 39.2, MCV of 92.5, platelet count of 337, hemat ocrit of 39.2, INR of 0.96. Sodium of 138, potassium of 4.2, chloride of 104, bicarb of 27, BUN of 2 7, creatinine of 7. IMPRESSION/RECOMMENDATIONS: The patient has had several loose, black bowel movements. This is in th e setting of upper intestinal abdominal symptoms, prior gastric surgery, and daily aspirin use. In a ddition, her BUN of creatinine ratio was notable. I am concerned about the possibility of upper inte stinal bleeding, marginal ulcer, peptic ulcer, Helicobacter pylori infection, severe gastritis, etcet era. She may have bleeding at an area of anastomosis as well. It is difficult to know given her unc ertainty about her overall surgical result and postop anatomy. Recurrence of gastrointestinal stroma l tumor is also possible, although the patient believes that she had negative tumor margins. PLAN: At this point, I recommend she remain n.p.o., on a proton-pump inhibitor. We will hold her as pirin. We will plan upper endoscopy. Given her obesity and sleep apnea, she is at high risk for con scious sedation. We will invite Anesthesia to help with her care. Pending the results of the upper endoscopy, we may need to consider small bowel imaging or even colonoscopy to evaluate bleeding [facility] es further. /[id number]/MODL
--- NOTE | 2017-08-29 08:13 | PDANEPAE ---
ANE History of Present Illness 67 year old female for EGD with symptoms of melena. PMHx of A.fib/flutter, heart block (pacemaker), CAD, HTN, DM, GIST. ANE Past Medical History - Cardiovascular History Hx Hypertension: Yes Hx Arrhythmias: Yes Hx Chest Pain: No Hx Coronary Artery / Peripheral Vascular Disease: Yes Hx CHF / Valvular Disease: No Cardiovascular History Comment: pacemaker - Pulmonary History Hx COPD: Yes Hx Asthma/Reactive Airway Disease: No Hx Recent Upper Respiratory Infection: No Hx Oxygen in Use at Home: Yes O2 in Use at Home (L/minute): 2.5 Hx Sleep Apnea: Yes Sleep Apnea Screening Result - Last Documented: Positive - Endocrine History Hx Diabetes: Yes Hypothyroid: No Hyperthyroid: No Obesity: yes - Renal History Hx Renal Disorders: No - Liver History Hx Hepatic Disorders: No - Neurological & Psychiatric Hx Hx Neurological and Psychiatric Disorders: No - Cancer History Hx Cancer: No - Congenital Disorder History Hx Congenital Disorders: No - GI History Gastrointestinal History Comment: GIST - Chronic Pain History Chronic Pain: No ANE Review of Systems Review of Systems: - Exercise capacity Exercise capacity: <4 METS - Pacemaker Pacemaker Shellacker: Medtronic Pacemaker Model: ADDRL1 Pacemaker Mode: Adapta pacemaker Date Pacemaker Last Checked: 03/18/2016 ANE Patient History - Allergies Allergies/Adverse Reactions: No Known Allergies Allergy (Verified 03/05/16 18:23) - Home Medications Home medications: home medication list seen and reviewed Home Medications: Rosuvastatin Calcium [Crestor 40mg (*)] 40 mg PO DAILY@06/14/12 [Last Taken 08/27/17] Cyanocobalamin [Vitamin B12 (*)] 1,000 mcg PO DAILY@03/05/16 [Last Taken 08/10] Herbals/Supplements -Info Only 1 ea PO DAILY@03/05/16 [Last Taken 08/28/17] Metoprolol Tartrate [Lopressor 25 mg (*)] 25 mg PO BID@03/05/16 [Last Taken 08/28/17] Albuterol Hfa Anes Only [Proair Hfa Icu (*)] 2 puffs IH Q4H PRN 03/17/16 [Last Taken 03/16/16] Benazepril/Hydrochlorothiazide [Benazepril-Hctz 20-12.5 mg Tab] 1 each PO DAILY@ 03/17/16 [Last Taken 08/28/17] metFORMIN HCL [Glucophage 500 mg (*)] 1,000 mg PO BIDMEAL 03/17/16 [Last Taken 08/28/17] Acetaminophen [Tylenol ES 500 mg (*)] 1,500 mg PO BID PRN 08/28/17 [Last Taken Unknown] Aspirin EC [Aspirin EC 81 mg (*)] 81 mg PO DAILY@08/28/17 [Last Taken ] Cholecalciferol Vit D3 [Vitamin D3 (*)] 2,000 units PO DAILY@08/28/17 [Last Taken 08/28/17] Fenofibrate [Tricor 145 mg (*)] 145 mg PO DAILY@08/28/17 [Last Taken 08/27/17 ] Omeprazole 20 mg PO DAILY@08/28/17 [Last Taken 08/28/17] - NPO status NPO Status: no food or drink >8 hours NPO Since - Liquids (Date): 08/29/17 NPO Since - Liquids (Time): 00:00 NPO Since - Solids (Date): 08/29/17 NPO Since - Solids (Time): 00:00 - Anes Hx Anes Hx: no prior problems - Smoking Hx Smoking Status: Never smoked Marijuana use: No - Family Anes Hx Family Anes Hx: neg - N/A ANE Labs/Vital Signs - Labs Result Diagrams: 08/29/17 04:24 08/28/17 17:45 - Vital Signs Vital Signs: reviewed preoperatively; see RN documention for details Blood Pressure: 132/83 Heart Rate: 71 Respiratory Rate: 16 O2 Sat (%): 94 Height: 170.18 cm Weight: 104.326 kg ANE Physical Exam - Airway Neck exam: FROM Mallampati Score: Class 2 Mouth exam: normal dental/mouth exam - Pulmonary Pulmonary: no respiratory distress - Cardiovascular Cardiovascular: regular rate and rhythym - ASA Status ASA Status: III ANE Anesthesia Plan Anesthesia Plan: GA w LMA Total IV Anesthesia: Yes
[2017-08-29] MEDS ORDERED: EPINEPHrine 1 MG/10 ML SYR IVP ONE (08:15)
[2017-08-29] MEDS ORDERED: LR 1,000 ML IV ONE (08:18)
[2017-08-29] MEDS ORDERED: PROPOFOL/EMULSION 500 MG/50 ML BOTTLE IV ONE (08:28)
[2017-08-29] MEDS ORDERED: LR 500 ML IV PRN (08:44)
[2017-08-29] MEDS ORDERED: fentaNYL 100 MCG/2 ML INJ IVP PRN (08:44)
[2017-08-29] MEDS ORDERED: PHENYLEPHRINE HCL 100 MCG/ML SYR IVP PRN (08:44)
[2017-08-29] MEDS ORDERED: ONDANSETRON 4 MG/2 ML VIAL IVP PRN (08:44)
[2017-08-29] MEDS ORDERED: NALOXONE HCL 0.4 MG/ML INJ IVP PRN (08:44)
--- NOTE | 2017-08-29 08:50 | GIREPORT ---
[facility] Surgical Services - Endoscopy Department Patient Name: Brenda Coles Procedure Date: 08/29/2017 8:11 AM Patient Type: Inpatient Attending MD/ ER Physician: Wan Case MD Procedure: Upper GI endoscopy Indications: Acute post hemorrhagic anemia, Melena Providers: Wan Case MD Medicines: Sedation Administered by an Anesthesia Professional Complications: No immediate complications. Description of Procedure: After obtaining informed consent, the endoscope was passed under direct vision. Throughout the procedure, the patient's blood pressure, pulse, and oxygen saturations were monitored continuously. The Endoscope was intro duced through the mouth, and advanced to the third part of duodenum. The uppe r GI endoscopy was accomplished without difficulty. The patient tolerated th e procedure well. Findings: The examined esophagus was normal. Evidence of a previous surgical anastomosis was found in the gastric an trum. This was characterized by ulceration. Diffuse minimal inflammation characterized by congestion (edema) was fo und in the entire examined stomach. A deformity was found in the gastric antrum. Does this patient have a l ap band? Or had prior antireflux surgery? Normal variant anatomy also poss ible? The examined duodenum was normal. Estimated Blood Loss: Estimated blood loss: none. Post Op Diagnosis: - Normal esophagus. - A previous surgical anastomosis was found, characterized by ulceratio n on distal aspect (clean based). - Gastritis. - Deformity in the gastric antrum. - Normal examined duodenum, mild duodenitis. - No specimens collected. Recommendation: - Resume previous diet. - Perform an H. Pylori serology. - Use a proton pump inhibitor PO BID for 12 weeks, then QD thereafter. - Consider repeat EGD for treatment if has clinical evidence of bleedin g. Attending Participation: I personally performed the entire procedure. Wan Case MD Wan Case MD 08/29/2017 8:49:29 AM This report has been signed electronicallyDaus Manpreet MD Number of Addenda: 0 Note Initiated On: 08/29/2017 8:11 AM [email or web address]
--- NOTE | 2017-08-29 08:53 | SUROPNOTE ---
[facility] Operative Report - Surgery BRIEF EGD NOTE INDICATION:melena COMPLICATIONS: none MEDS: per anesthesia FINDINGS: 1. normal esophagus 2. gastric cardia deformity, ?lap band 3. mild gastritis 4. prior surgery to gastric antrum - ulceration, clean based, on distal margin of anastomosis 5. minimal duodenitis IMPRESSION/RECS: 1. Melena - from anastomotic ulceration - no active bleeding at EGD - ulceration was clean based - ok to advance to clears - ok to change to PO PPI BID - check serum h.pylori ab, treat if positive - would repeat EGD for evidence of repeat bleeding - will follow
[2017-08-29] MEDS ORDERED: PANTOPRAZOLE SODIUM 40 MG TAB PO SCH (09:00)
--- NOTE | 2017-08-29 09:09 | ASMTCMCOM ---
CM Note CM Note Notes: Patient admitted with melena. She had an upper GI endoscopy this morning and GI is recommending tx with a PPI, as well as an H Pylori serology. She is being treated supportively here in the hospital. Patient lives alone and is normally independent. I don't think she will have any discharge needs; Case Management available if this changes. Date Signed: 08/29/2017 09:08 AM Electronically Signed By:Rani Wong RN
[2017-08-29] MEDS ORDERED: CHOLECALCIFEROL VIT D3 2,000 UNITS TAB/CAP PO SCH (10:00)
[2017-08-29] MEDS ORDERED: CYANO/VITAMIN B12 1000 MCG TAB PO SCH (10:00)
[2017-08-29] MEDS ORDERED: METOPROLOL TARTRATE 25 MG TAB PO SCH (10:00)
[2017-08-29] MEDS ORDERED: Herbals/Supplements -Info Only PO SCH (10:00)
[2017-08-29 10:06] VITALS: BP 125/84
--- NOTE | 2017-08-29 10:22 | POSTANESTH ---
Post Anesthetic Evaluation Cardiovascular Status: Normal, Stable, Similar to Pre-Op Cond Respiratory Status: Normal, Stable, Similar to Pre-op Cond. Level of Consciousness/Mental Status: Can Participate in Eval, Alert and Oriented Pain Control: Adequate, Prn Tx Ordered Nausea/Vomiting Control: Adequate, Prn Tx Ordered Complications Possibly Related to Anesthesia: None Noted
--- NOTE | 2017-08-29 11:12 | HOSPPROG ---
Hospitalist Progress Note Assessment/Plan: patient is a 67 y/o female w hx of afib, aflutter, DM, diverticulitis who presented to the ER with melena. Today is my first encounter w the patient, chart reviewed. *melena -s/o EGD which shows -normal esophagus, gastric cardia deformity, ?lap band, mild gastritis,prior surgery to gastric antrum,ulceration, clean based, on distal margin of anastomosis,minimal duodenitis -H pylori negative -PPI x 12 weeks then daily *HTN -bp stable *AFib,aflutter -patient isn't clear if she has a hx of this -she sees Dr Yuan *HLD *Hx of heart block -s/p pacer *CAD -beta jill, asa therapy *Plan: dc if hgb and hct are stable, ppi x 12 weeks, then daily Subjective: Brenda is feeling fine, no complaints. Objective: Vital Signs Temp Pulse Resp BP Pulse Ox 37.0 C 60 16 125/84 H 97 08/29/17 09:27 08/29/17 09:27 08/29/17 09:27 08/29/17 09:27 08/29/17 09:27 Laboratory Results 08/29/17 04:24 08/28/17 08/29/17 08/30/17 05:59 05:59 05:59 Intake Total 1500 350 Balance 1500 350 PT 13.0 SEC (12.0-15.0) 08/28/17 17:45 INR 0.96 (0.83-1.16) 08/28/17 17:45 - Physical Exam Constitutional: no apparent distress, appears nourished, not in pain, obese Eyes: PERRL Ears, Nose, Mouth, Throat: hearing normal Cardiovascular: regular rate and rhythym Respiratory: no respiratory distress Gastrointestinal: normoactive bowel sounds Skin: warm Musculoskeletal: full muscle strength Neurologic: AAOx3 Psychiatric: interacting appropriately ICD10 Worksheet Patient Problems: Problems Problem Status Onset GI bleed Acute Cardiac pacemaker procedure Active Complete atrioventricular block Active Left ureteral calculus Acute Transient cerebral ischemia Acute
--- NOTE | 2017-08-29 13:16 | GDS ---
[f rep st] DISCHARGE SUMMARY DISCHARGE DIAGNOSES: 1. Melena. 2. Hypertension. 3. History of atrial fibrillation and flutter. 4. Hyperlipidemia. 5. History of heart block. 6. Coronary artery disease. CONSULTATION: Dr. Case. Briefly, the patient is a 67-year-old female with a history of AFib, A flutter, diabetes, and diverticulitis. She presented to the emergency room with melena. She was seen and evaluated by Dr. Case. She had an EGD which showed a normal esophagus, some type of gastric deformity, mild gastritis, and ulceration with a clean base. She will be treated with a PPI b.i.d. x12 weeks. If has further melena, to follow up in the ER or with Dr. Case. HOSPITAL COURSE PER PROBLEM: 1. Melena: Recommending she stop her aspirin therapy for 7 more days. Her H pylori is negative. Further followup with Dr. Case or return to the ER if this re-occurs. 2. Hypertension, stable. 3. Atrial fibrillation, flutter: She is unclear if she truly has a diagnosis of this. Further followup with Dr. Yuan. 4. Hyperlipidemia: Statin. 5. History of heart block on a pacemaker. 6. Coronary artery disease, on beta jill: To hold aspirin therapy temporarily. DISCHARGE CONDITION: Stable. Blood pressure is 125/84, heart rate is 60, respiratory rate is 16, O2 sats on room air 97%, temperature 37 degrees Celsius. MEDICATIONS AT DISCHARGE: Please see the EMR. DISCHARGE INSTRUCTIONS: 1. To further follow up with Dr. Yuan. 2. If she develops further bleeding to return to the ER. /[id number]/MODL MTDD
[2017-08-29] MEDS ORDERED: FENOFIBRATE 145 MG TAB PO SCH (22:00)
[2017-08-29] MEDS ORDERED: ROSUVASTATIN CALCIUM 40 MG TAB PO SCH (22:00)
== END 2017-08-29 12:55 | disposition home or self-care (01) ==
LOC: F3E 21:31
PROVIDERS: ADMIT Internal Medicine; ATTEND Family Medicine
PROC: 0DJ08ZZ Inspection of Upper Intestinal Tract, Via Natural or Artificial Opening Endoscopic (ICD-10-PCS; principal; 2017-08-28)
DX: K92.1 Melena (principal); K29.70 Gastritis, unspecified, without bleeding; I10 Essential (primary) hypertension; I48.91 Unspecified atrial fibrillation; E78.5 Hyperlipidemia, unspecified; I25.10 Atherosclerotic heart disease of native coronary artery without angina pectoris; E11.9 Type 2 diabetes mellitus without complications; E66.01 Morbid (severe) obesity due to excess calories; Z85.3 Personal history of malignant neoplasm of breast; Z79.84 Long term (current) use of oral hypoglycemic drugs; Z95.0 Presence of cardiac pacemaker; Z98.84 Bariatric surgery status; Z68.36 Body mass index [BMI] 36.0-36.9, adult
CPT/HCPCS: 43235; 93005; 96360; 99285; G0378; J2704

== ENCOUNTER → 2017-12-24 | Outpatient (CLI) | payer BC ==
[~2017-12-24] MED LIST changes: +IOPAMIDOL (ISOVUE-300) 100 ML BTL ONE; -IOPAMIDOL (ISOVUE-370) 150 ML BTL IV ONE; -IOPAMIDOL (ISOVUE-M 300) 15 ML VIAL IV ONE
== END ==
LOC: FIMAGING 13:53
PROVIDERS: ATTEND Internal Medicine Hematology & Oncology
DX: C50.112 Malignant neoplasm of central portion of left female breast (principal); S14.115A Complete lesion at C5 level of cervical spinal cord, initial encounter; M85.88 Other specified disorders of bone density and structure, other site; R91.1 Solitary pulmonary nodule; Z17.0 Estrogen receptor positive status [ER+]
CPT/HCPCS: 82565-PO; Q9967

== ENCOUNTER → 2018-07-02 | Outpatient (CLI) | payer BC | LOC: FIMAGING 16:21 | PROVIDERS: ATTEND Urology | DX: N20.0 Calculus of kidney (principal) ==

== ENCOUNTER → 2018-08-03 | Outpatient (CLI) | payer BC | LOC: FIMAGING 09:37 ==

== ENCOUNTER → 2018-08-03 | Outpatient (CLI) | payer BC | LOC: FIMAGING 09:37 ==

== ENCOUNTER 2018-08-17 20:06 | Emergency (ER) | payer BC | END 2018-08-17 22:24 | disposition home or self-care (01) ==